=== PATIENT | female | born 1990 | race Caucasian/White ===

== ENCOUNTER 2018-07-18 05:21 | Outpatient (CLI) | payer SELFPAY | END 2018-07-18 05:22 | disposition critical access hospital (66) | LOC: EMS 05:21 | PROVIDERS: ATTEND Surgery | DX: R11.2 Nausea with vomiting, unspecified (principal); M25.511 Pain in right shoulder; N64.4 Mastodynia | CPT/HCPCS: A0425; A0427 ==

== ENCOUNTER 2018-07-18 05:43 | Inpatient (IN) | payer SELFPAY ==
--- NOTE | 2018-07-18 06:10 | ED Physician Documentation ---
History of Present Illness - Stated complaint Stated Complaint: N/V/SHOULDER PAIN - Chief complaint Chief Complaint: Abd Pain - History obtained from History obtained from: Patient - Additonal information Additional information: Patient is a 28-year-old female with history of insulin-dependent type 1 diabetes, anxiety, depression, borderline personality disorder presenting with about 1 day of nausea, vomiting, right upper quadrant pain that radiates to her right shoulder. Patient reports that she is compliant with all medications. Patient denies associated fever, urinary changes, stool changes, abnormal vaginal bleeding, discharge, or pain. Last menstrual period approximately 3 weeks ago. Patient denies any particular improving or worsening factors to her symptoms. Patient denies drug and alcohol use. Patient denies history of STIs, PID, gallbladder issues. Review of Systems Constitutional: denies: Fever GI: reports: Abdominal Pain, Nausea, Vomiting PD PAST MEDICAL HISTORY - Past Medical History Endocrine/Autoimmune: Type 1 diabetes Psych: Depression, Anxiety, Other - Past Surgical History Past Surgical History: No - Allergies Allergies/Adverse Reactions: Allergies Allergy/AdvReac Type Severity Reaction Status Date / Time Iodine and Iodide Containing Allergy Anaphylaxis Verified 07/18/18 05:50 Produc PD ED PE NORMAL - General General: Alert and oriented X 3, Well developed/nourished. No: No acute distress (Ill and uncomfortable appearing) - HEENT HEENT: Atraumatic, Pharynx benign, Dentition benign. No: Moist mucous membranes (Dry mucous membranes) - Cardiac Cardiac: No murmur, Other. No: RRR (Slightly tachycardic) - Abdomen Abdomen: Normal bowel sounds, Soft, Non tender (No specific rebound, guarding, Lomax's sign, McBurney's point tenderness), Non distended - Derm Derm: Normal color, Warm and dry, No rash - Extremities Extremities: No deformity, No tenderness to palpate, No edema - Neuro Neuro: Alert and oriented X 3, No motor deficit, No sensory deficit - Psych Psych: Normal mood, Normal affect Results - Vitals Vitals: Vital Signs - 24 hr 07/18/18 07/18/18 05:46 07:04 Temperature 36.6 C Heart Rate 116 H 116 H Respiratory 18 17 Rate Blood Pressure 114/69 96/55 L O2 Saturation 99 100 Oxygen O2 Source Room air - Labs Labs: Laboratory Tests 07/18/18 07/18/18 07/18/18 05:50 06:25 06:25 WBC 19.1 H RBC 4.81 Hgb 14.6 Hct 46.3 MCV 96.4 MCH 30.4 MCHC 31.5 L RDW 12.9 Plt Count 346 MPV 8.9 Neut # (Auto) Not Reportable Lymph # (Auto) Not Reportable Stephens # (Auto) Not Reportable Eos # (Auto) Not Reportable Baso # (Auto) Not Reportable Absolute Nucleated RBC Not Reportable Total Counted 100 Band Neuts % (Manual) 4 Abnorm Lymph % (Manual) 0 Nucleated RBC % Not Reportable Neutrophils # (Manual) 14.3 H Lymphocytes # (Manual) 3.6 H Monocytes # (Manual) 1.1 H Eosinophils # (Manual) 0.0 Basophils # (Manual) 0.0 Differential Comment MANUAL DIFFERENTIAL Platelet Estimate NORMAL (130-450,000) RBC Morph Micro Appear NORMAL APPEARANCE Sodium 132 L Potassium 4.0 Chloride 107 Carbon Dioxide 6 L* Anion Gap 19.0 H BUN 10 Creatinine 0.7 Estimated GFR (MDRD) 100 Glucose 358 H POC Whole Bld Glucose Calcium 7.3 L Total Bilirubin 1.4 H AST 18 ALT 16 Alkaline Phosphatase 97 Total Protein 6.9 Albumin 3.9 Globulin 3.0 Albumin/Globulin Ratio 1.3 Lipase 19 L Serum HCG, Qual Urine Color YELLOW Urine Clarity CLEAR Urine pH 5.5 Ur Specific Davis >=1.030 H Urine Protein 100 H Urine Glucose (UA) 500 H Urine Ketones >=80 H Urine Occult Blood MODERATE H Urine Nitrite NEGATIVE Urine Bilirubin NEGATIVE Urine Urobilinogen 0.2 (NORMAL) Ur Leukocyte Esterase NEGATIVE Urine RBC 6-10 H Urine WBC 0-3 Ur Squamous Epith Cells RARE Squamous Urine Bacteria Rare Urine Mucus Few Strands Ur Microscopic Review INDICATED Urine Culture Comments NOT INDICATED Serum Ketones 07/18/18 07/18/18 07/18/18 06:25 06:25 06:51 WBC RBC Hgb Hct MCV MCH MCHC RDW Plt Count MPV Neut # (Auto) Lymph # (Auto) Stephens # (Auto) Eos # (Auto) Baso # (Auto) Absolute Nucleated RBC Total Counted Band Neuts % (Manual) Abnorm Lymph % (Manual) Nucleated RBC % Neutrophils # (Manual) Lymphocytes # (Manual) Monocytes # (Manual) Eosinophils # (Manual) Basophils # (Manual) Differential Comment Platelet Estimate RBC Morph Micro Appear Sodium Potassium Chloride Carbon Dioxide Anion Gap BUN Creatinine Estimated GFR (MDRD) Glucose POC Whole Bld Glucose 350 H Calcium Total Bilirubin AST ALT Alkaline Phosphatase Total Protein Albumin Globulin Albumin/Globulin Ratio Lipase Serum HCG, Qual NEGATIVE Urine Color Urine Clarity Urine pH Ur Specific Davis Urine Protein Urine Glucose (UA) Urine Ketones Urine Occult Blood Urine Nitrite Urine Bilirubin Urine Urobilinogen Ur Leukocyte Esterase Urine RBC Urine WBC Ur Squamous Epith Cells Urine Bacteria Urine Mucus Ur Microscopic Review Urine Culture Comments Serum Ketones MODERATE H PD MEDICAL DECISION MAKING - ED course Complexity details: reviewed results, re-evaluated patient, considered differential, d/w patient ED course: Patient recently moved to the area and does not have previous records at this hospital. Patient has history of type 1 diabetes and with her symptoms, do have concern for possible DKA. Given her right upper quadrant pain that radiates to her right shoulder, also have concern for gallbladder disease such as biliary colic and acute cholycystitis, as well as Pb-Darryl Bharath syndrome. However, patient denies previous STIs, PID, gallbladder issues. Patient also denies vaginal complaints today that would raise high suspicion for acute PID or STI, making Pb-Darryl Bharath syndrome less likely. Patient started on IV fluids, as well as nausea and pain medication. Blood work and urinalysis ordered, as well as right upper quadrant ultrasound to further evaluate for possible gallbladder problems.Blood glucose levels measuring over 315 felt appropriate to give 10 units of regular insulin, especially given concern for DKA. Lab work returned with significant leukocytosis, as well as elevated anion gap and presence of ketones in both blood and urine. Patient's CO2 levels also decreased. At this time, feel most appropriate to admit to hospitalist for further work-up and treatment. Discussed results and recommendations including admission with patient who is comfortable with this plan. Gallbladder ultrasound still pending. Hospitalist agrees to admission. Departure - Departure Disposition: 66 [facility] DC/Xfer Clinical Impression: DKA (diabetic ketoacidoses) Qualifiers: Diabetes mellitus type: type 1 Diabetes mellitus complication detail: without coma Qualified Code(s): E10.10 - Type 1 diabetes mellitus with ketoacidosis without coma Condition: Fair
[2018-07-18] MEDS ORDERED: ONDANSETRON 4 MG/2 ML VIAL IVP STA (06:16)
[2018-07-18] MEDS ORDERED: SODIUM CHLORIDE 0.9% 1,000 ML IV ONE ×2 (06:16→07:14)
[2018-07-18 06:33] LABS: BASOPHILS % (AUTO) 0.6 %; EOSINOPHILS % (AUTO) 0.1 %; MEAN CORPUSCULAR HGB CONC 31.5 g/dL (32.0-36.0)
[2018-07-18 06:39] LABS: HGB - HEMOGLOBIN 14.6 g/dL (12.0-16.0); LYMPHOCYTES % (AUTO) 11.5 %; MEAN CORPUSCULAR HEMOGLOBIN 30.4 pg (27.0-31.0); MEAN CORPUSCULAR VOLUME 96.4 fL (81.0-99.0); MEAN PLATELET VOLUME 8.9 fL (7.9-10.8); MONOCYTES % (AUTO) 6.4 %; NEUTROPHILS % (AUTO) 81.4 %; PLT - PLATELET COUNT 346 10^3/uL (130-450); RED BLOOD COUNT 4.81 10^6/uL (4.20-5.40); RED CELL DISTRIBUTION WIDTH 12.9 % (12.0-15.0); WHITE BLOOD COUNT 19.1 x10^3/uL (4.8-10.8)
[2018-07-18 06:41] LABS: ABNORMAL LYMPHS % (MANUAL) 0 %
[2018-07-18] MEDS ORDERED: fentaNYL 100 MCG/2 ML VIAL IVP STA (06:41)
[2018-07-18 06:56] LABS: ALBUMIN 3.9 g/dL (3.2-5.5); ALBUMIN/GLOBULIN RATIO 1.3 (1.0-2.2); BILIRUBIN,TOTAL 1.4 mg/dL (0.2-1.0); CALCIUM 7.3 mg/dL (8.5-10.3); CREATININE 0.7 mg/dL (0.4-1.0); TOTAL PROTEIN 6.9 g/dL (6.7-8.2)
[2018-07-18] MEDS ORDERED: INSULIN REGULAR HUMAN 100 UNIT/1 ML 10 ML MDV IVP STA (06:57)
[2018-07-18 07:00] LABS: HCG,QUALITATIVE BLOOD NEGATIVE
[2018-07-18 07:00] LABS: BILIRUBIN,URINE NEGATIVE (NEGATIVE); GLUCOSE, URINE (UA) 500 mg/dL (NEGATIVE); KETONES,URINE (UA) >=80 mg/dL (NEGATIVE); LEUKOCYTE ESTERASE, URINE NEGATIVE (NEGATIVE); NITRITE,URINE NEGATIVE (NEGATIVE); OCCULT BLOOD,URINE MODERATE (NEGATIVE); PH,URINE 5.5 PH (5.0-7.5); PROTEIN,URINE 100 mg/dL (NEGATIVE); UROBILINOGEN,URINE 0.2 (NORMAL) E.U./dL (NORMAL)
[2018-07-18 07:05] LABS: BAND NEUTROPHILS % (MANUAL) 4 %; DIFFERENTIAL COMMENT MANUAL DIFFERENTIAL; LYMPHOCYTES # (MANUAL) 3.6 10^3/uL (1.5-3.5); LYMPHOCYTES % (MANUAL) 19 %; MONOCYTES # (MANUAL) 1.1 10^3/uL (0.0-1.0); NEUTROPHILS # (MANUAL) 14.3 10^3/uL (1.5-6.6); NEUTROPHILS % (MANUAL) 71 %; PLATELET ESTIMATE, MANUAL NORMAL (130-450,000) (NORMAL); RBC MORPHOLOGY (MULTIPLE) NORMAL APPEARANCE (NORMAL)
[2018-07-18 07:07] LABS: CLARITY,URINE CLEAR (CLEAR)
[2018-07-18 07:17] LABS: BACTERIA,URINE Rare /HPF (None Seen); MUCUS,URINE Few Strands; SQUAMOUS EPITHELIAL CELL,UR RARE Squamous (<= Few)
[2018-07-18] MEDS ORDERED: HYDROmorphone 0.5 MG/0.5 ML SYRINGE IVP PRN (08:10)
[2018-07-18] MEDS ORDERED: PROCHLORPERAZINE 10 MG/2 ML VIAL IVP PRN (08:10)
[2018-07-18] MEDS ORDERED: ONDANSETRON 4 MG/2 ML VIAL IVP PRN (08:10)
[2018-07-18] MEDS ORDERED: SODIUM CHLORIDE FLUSH 0.9% 10 ML SYRINGE IVP PRN (08:10)
[2018-07-18 08:48] LABS: VBG BASE EXCESS -28.8 mmol/L (-2 - +2); VBG PCO2 26.8 mmHg (41-51); VBG PH 6.849 (7.31-7.41); VBG PO2 36.3 mmHg (25-47); VBG TOTAL CO2 5.4 mmol/L (24-29)
[2018-07-18 08:55] LABS: HB2 TOTAL 17.7 g/dL; HEMOGLOBIN A1C 1.86 g/dL; HEMOGLOBIN A1C % 11.8 % (4.6-6.2)
[2018-07-18] MEDS ORDERED: ACETAMINOPHEN 325 MG TABLET PO STA (08:55)
[2018-07-18] MEDS ORDERED: INSULIN REGULAR HUMAN 100 UNIT in SODIUM CHLORIDE 0.9% 100ML 99 ML IV SCH (09:00)
[2018-07-18] MEDS ORDERED: DEXTROSE 5%-0.9% NACL 1,000 ML IV SCH (09:00)
[2018-07-18 09:01] LABS: BUN - BLOOD UREA NITROGEN 9 mg/dL (6-20); CALCIUM 7.5 mg/dL (8.5-10.3); CHLORIDE 109 mmol/L (101-111); CREATININE 0.8 mg/dL (0.4-1.0); GFR - MDRD 85 (>89); GLUCOSE 305 mg/dL (70-100); MAGNESIUM 2.1 mg/dL (1.7-2.8); SODIUM 132 mmol/L (135-145)
[2018-07-18 09:02] LABS: CARBON DIOXIDE - CO2 < 6 mmol/L (21-32)
--- NOTE | 2018-07-18 09:12 | Ultrasound Report ---
Reason: concern for gallbladder, Pb Sinha Procedure Date: 07/18/2018 Accession Number: [id number] / [id number] Procedure: US - Abdomen Limited CPT Code: FULL RESULT: EXAM: ABDOMEN ULTRASOUND LIMITED, RUQ EXAM DATE: 07/18/2018 08:33 AM. CLINICAL HISTORY: Concern for gallbladder, Pb Sinha. COMPARISON: None. TECHNIQUE: Real-time scanning was performed with static images obtained. FINDINGS: Liver: Overall decreased echotexture of the liver parenchyma with accentuated brightness of the portal vein calvin. 14.3 cm. Main portal vein flow: Hepatopetal. Gallbladder: There is a 4 mm gallbladder wall polyp. No stones or sludge. No gallbladder wall thickening. No sonographic Lomax's sign. Biliary System: CBD measures 3 mm. No intrahepatic or extrahepatic ductal dilatation. Other: The right kidney measures 11.3 cm in length. No hydronephrosis. IMPRESSION: 1. No cholelithiasis or cholecystitis. 2. Overall decreased echotexture of the liver parenchyma with accentuated brightness of the portal vein calvin can be seen in the setting of acute hepatitis. Correlate clinically. RADIA
[2018-07-18] MEDS ORDERED: SODIUM CHLORIDE FLUSH 0.9% 10 ML SYRINGE ONE (09:38)
[2018-07-18] MEDS: SODIUM CHLORIDE FLUSH 0.9% 10 ML SYRINGE IVP SCH ×2 (10:17→21:41)
[2018-07-18] MEDS: SODIUM CHLORIDE 0.9% 1,000 ML IV SCH ×2 (10:19→22:31)
[2018-07-18 11:00] LABS: VBG BASE EXCESS -28.3 mmol/L (-2 - +2); VBG PCO2 27.5 mmHg (41-51); VBG PH 6.859 (7.31-7.41); VBG PO2 24.7 mmHg (25-47); VBG TOTAL CO2 5.6 mmol/L (24-29)
[2018-07-18 11:20] LABS: BUN - BLOOD UREA NITROGEN 8 mg/dL (6-20); CALCIUM 7.2 mg/dL (8.5-10.3); CHLORIDE 111 mmol/L (101-111); CREATININE 0.7 mg/dL (0.4-1.0); GFR - MDRD 100 (>89); GLUCOSE 240 mg/dL (70-100); MAGNESIUM 1.9 mg/dL (1.7-2.8); SODIUM 132 mmol/L (135-145)
[2018-07-18 11:21] LABS: CARBON DIOXIDE - CO2 < 6 mmol/L (21-32)
[2018-07-18] MEDS ORDERED: SODIUM BICARBONATE 150 MEQ in DEXTROSE 5% 1,000 ML IV SCH (11:30)
[2018-07-18] MEDS: VENLAFAXINE ER 75 MG CAPSULE PO SCH (11:53)
[2018-07-18] MEDS ORDERED: fentaNYL 100 MCG/2 ML VIAL IVP PRN (11:53)
[2018-07-18] MEDS ORDERED: ACETAMINOPHEN 1,000 MG/100 ML 100 ML IV PRN (12:00)
[2018-07-18 12:13] LABS: BUN - BLOOD UREA NITROGEN 7 mg/dL (6-20); CALCIUM 7.5 mg/dL (8.5-10.3); CHLORIDE 111 mmol/L (101-111); CREATININE 0.7 mg/dL (0.4-1.0); GFR - MDRD 100 (>89); GLUCOSE 215 mg/dL (70-100); MAGNESIUM 1.9 mg/dL (1.7-2.8); SODIUM 134 mmol/L (135-145)
[2018-07-18 12:14] LABS: CARBON DIOXIDE - CO2 < 6 mmol/L (21-32)
[2018-07-18] MEDS ORDERED: IOVERSOL 320 100 ML VIAL IVP ONE (12:17)
[2018-07-18] MEDS ORDERED: POTASSIUM CHLOR 10 MEQ/100 ML 10 MEQ/100 ML BAG IV ONE (12:30)
[2018-07-18] MEDS ORDERED: DOXYCYCLINE INJ 100 MG in SODIUM CHLORIDE 0.9% MINIBAG 100 ML IV SCH (12:30)
[2018-07-18 12:59] LABS: VBG PCO2 22.6 mmHg (41-51); VBG PH 6.942 (7.31-7.41); VBG PO2 41.7 mmHg (25-47)
[2018-07-18 13:00] LABS: VBG BASE EXCESS -26.4 mmol/L (-2 - +2); VBG TOTAL CO2 5.5 mmol/L (24-29)
[2018-07-18] MEDS ORDERED: cefOXitin 2 GM in SODIUM CHLORIDE 0.9% MINIBAG 100 ML IV SCH (13:00)
--- NOTE | 2018-07-18 13:23 | XRAY Report ---
Reason: Pleuritic R chest pain, rales R base Procedure Date: 07/18/2018 Accession Number: [id number] / [id number] Procedure: XR - Chest 1 View X-Ray CPT Code: 52522 FULL RESULT: EXAM: CHEST RADIOGRAPHY EXAM DATE: 07/18/2018 12:19 PM. CLINICAL HISTORY: Pleuritic R chest pain, rales R base. COMPARISON: None. TECHNIQUE: 1 view. FINDINGS: Lungs/Pleura: No focal opacity. No effusions. Mediastinum: Within exam limitations, the cardiomediastinal contour is normal. Other: None. IMPRESSION: No acute radiographic cardiopulmonary process RADIA
[2018-07-18] MEDS ORDERED: GENTAMICIN PER PHARMACY (DO NOT LOAD) IV ONE (13:25)
--- NOTE | 2018-07-18 14:46 | HISTORY & PHYSICAL EXAMINATION ---
DATE OF SERVICE: 07/18/2018 Physician: Ludmila Amaro MD HISTORY OF PRESENT ILLNESS: This is a 28-year-old white female who is visiting here from [place]. The patient has been here approximately a week, helping her sister's family move and then plans to travel with them by car and eventually return to [place]. The patient has a history of type 1 diabetes, which was diagnosed three years ago. She describes having one episode of "ketoacidosis" previously. She also has a history of anxiety and depression and borderline disorder and is on psychiatric medications, which are keeping her stable. The patient presents with awakening approximately a day and a half ago, at 3:00 in the morning with severe nausea and vomiting. She tried to take liquids, including 7-Up, which only helped minimally. She used a heating pad, but continued to have nausea, vomiting, and right upper quadrant pain, and after 24 hours with these symptoms, presented to the Emergency Room. In the ER, she described right upper quadrant pain with radiation to the right shoulder. She has never had this before. There was no fever. She denies any diarrhea. She denies any cardiopulmonary symptoms. The ER evaluation revealed that she has an elevated white count of 19 with a left shift, severe acidosis with serum pH 6.9 and positive ketones, elevated glucose over 300, and is in diabetic ketoacidosis. She is being admitted for DKA management. PAST MEDICAL HISTORY 1. Type 1 diabetes, diagnosed three years ago, one episode of DKA in the past. 2. Depression and anxiety. 3. Borderline personality disorder. ALLERGIES: IODINE AND IODINE-CONTAINING PRODUCTS. MEDICATIONS 1. Novolin insulin 1-10 U sq before meals and at bedtime. 2. FlexPen insulin 70/30, 25 units b.i.d. 3. Effexor XR 150 mg daily. 4. Prazosin 1 mg every night. 5. Abilify 15 mg every night. 6. Temazepam 15 mg every night. 7. Benztropine 0.5 mg in the a.m. and 1 mg in the p.m. FAMILY HISTORY: Mother of alcoholism. Father's diagnosis is unknown. She has one identical twin sister who does not have diabetes, but does have insulin resistance. A son is healthy. SOCIAL HISTORY: She is , has one 9-year-old child. The patient lives in [place]. 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 She is living with a significant other and her 9-year-old son. She is a smoker of half pack a day of cigarettes. She does not use any marijuana, no illicit drug use, no history of IV drug use. She very rarely drinks any alcohol. REVIEW OF SYSTEMS: The patient reports that two days ago, she and her twin sister, along with nephew ate at a fast-food restaurant; they did have different foods. She denies any i.v drug use ever. She has never had Hepatitis. She has never had symptoms of right upper quadrant pain. There are no pelvic symptoms. A comprehensive review of systems was performed, the pertinent positives are listed, the rest are negative. PHYSICAL EXAMINATION GENERAL: Young white female. She is in moderate distress from pain. She is sitting upright in bed, which is a more comfortable position than lying supine. She has a heating pad over the right upper quadrant of the abdomen. VITAL SIGNS: Blood pressure 129/78, heart rate 130 in sinus tachycardia. She is afebrile. Room air saturation 100%. HEENT: Shows dry oral mucosa. NECK: Without JVD or carotid bruits. CHEST: Right basilar crackles or atelectasis, otherwise clear. No wheezing. HEART: Heart sounds are normal, but tachycardic. ABDOMEN: Soft, decreased bowel sounds, nontender to light palpation. No guarding or rebound. No organomegaly. EXTREMITIES: No clubbing, cyanosis or edema. NEUROLOGIC: Grossly intact. LABORATORY DATA: Sodium 132, potassium 4.0, bicarbonate 6, anion gap 19, BUN and creatinine normal. Glucose 358. A1c is 11.8, calcium 7.3, bilirubin 1.4. Normal lipase. Negative serum hCG. White blood count 19 with a left shift. Hemoglobin 14.6, platelet count 346. Venous blood gas pH 6.85. Urinalysis had moderate occult blood and high ketones. Nasal screen was negative for MRSA. Her serum ketones are moderate. X-RAY: Chest x-ray shows no active pulmonary disease. EKG: Sinus tachycardia, diffusely flat T waves and prolonged QTc interval of 496 msec. There is no old EKG available for comparison. ULTRASOUND: A right upper quadrant ultrasound was done that revealed "no cholelithiasis or cholecystitis, decreased echotexture of the liver parenchyma with accentuated brightness of the portal vein calvin, which can be seen in acute hepatitis". DIAGNOSES/IMPRESSION 1. Diabetic ketoacidosis. 2. History of Type 1 diabetes. 3. Right upper quadrant pain. 4. Abnormal portal vein and liver findings by ultrasound imaging. 5. Pleuritic pain with the above findings suggests possible Ywtg-Isoa-Qlbpdr syndrome (hepatic involvement from pelvic inflammatory disease). 6. Possible PID, therefore. 7. Abnormal EKG. PLAN 1. Admit the patient to the ICU on telemetry. 2. Start a DKA protocol including IV insulin drip, saline hydration, bicarbonate infusion in her case, and eventual transition to D5 with saline and potassium hydration. 3. Use antiemetics and start bowel rest, except ice chips and sips of water and diet 7-Up will be okay. 4. Obtain further imaging of the abdomen and pelvis, a CT or MRI will be requested. 5. Begin treatment empirically for PID plus Rulx-Zcpg-Rzemoq syndrome. Our hospital does not currently carry Cefoxitin, per Pharmacy, therefore the combination, from [employer], of Cefoxitin plus Doxycycline cannot be used, but in its place, we will use IV clindamycin and IV gentamicin with serum Gentamicin troughs to be followed. The ER was also considering this diagnosis and a Gonococcus/Chlamydia test was already sent off. A INSTRUCTIONAL MATERIAL DIRECTOR consult will be requested to follow along and advise. 6. Continue her antidepressant and antipsychotic medications with sips of water. 7. Advance the diet as tolerated. 8. Echo to evaluate resting cardiac function. CODE STATUS: FULL CODE. DEEP VENOUS THROMBOSIS PROPHYLAXIS: ZAYRA stockings and SCDs. ATTESTATION: The patient is expected to be transferred or discharged to another facility within 96 hours: Yes. TD: 07/18/2018 14:06 WESLY
[2018-07-18] MEDS: CLINDAMYCIN 900 MG/50 ML 50 ML IV SCH ×2 (15:32→22:31)
[2018-07-18] MEDS ORDERED: SODIUM CHLORIDE 0.9% IV ONE (16:00)
[2018-07-18] MEDS ORDERED: GENTAMICIN IV ONE (16:00)
--- NOTE | 2018-07-18 17:08 | HISTORY & PHYSICAL EXAMINATION ---
DATE OF SERVICE: 07/18/2018 Physician: Ludmila Amaro MD ADDENDUM TO DIAGNOSES/IMPRESSION 8. Anxiety and depression. 9. Bipolar disorder. TD: 07/18/2018 16:31
[2018-07-18] MEDS ORDERED: SODIUM BICARBONATE 8.4% 50 MEQ/50 ML VIAL ONE (17:19)
--- NOTE | 2018-07-18 17:30 | ANESTHESIA PROCEDURE NOTE ---
Anesth Central Line Template - Central Line Central Line Preparation: Consent Obtained, Time out completed, Ultrasound used, Sterile prep and drape Central line location: Right IJ Central line type: Triple lumen Central line catheter tip site resides: Superior vena cava (SVC) Central line aftercare: Chlorhexidine disc placed, Secured, Placement confirmed, No pneumothorax, No complications, Bundle checklist complete, Pt tolerated well
--- NOTE | 2018-07-18 18:04 | XRAY Report ---
Reason: new CVL@R IJ Procedure Date: 07/18/2018 Accession Number: [id number] / [id number] Procedure: XR - Chest for Line Placement CPT Code: FULL RESULT: EXAM: CHEST RADIOGRAPHY EXAM DATE: 07/18/2018 05:34 PM. CLINICAL HISTORY: New CVC RIGHT IJ. COMPARISON: CHEST 1 VIEW 07/18/2018 12:06 PM. TECHNIQUE: 1 view. FINDINGS: Cardiac leads overlie the chest. There is a right internal jugular central venous catheter terminating in the right atrium, approximately 2.5 cm below the expected location of the superior cavoatrial junction. Heart size is normal. No consolidation, pleural effusion, or pneumothorax. IMPRESSION: Right internal jugular central venous catheter terminating in the right atrium approximately 2.5 cm below the expected location of the superior cavoatrial junction. No acute cardiopulmonary findings. RADIA
[2018-07-18] MEDS: KETOROLAC 30 MG/ML VIAL IVP PRN (18:16)
[2018-07-18 18:20] LABS: VBG PCO2 25.5 mmHg (41-51); VBG PH 7.2 (7.31-7.41)
[2018-07-18 18:21] LABS: VBG BASE EXCESS -16.6 mmol/L (-2 - +2); VBG TOTAL CO2 10.5 mmol/L (24-29)
[2018-07-18] MEDS ORDERED: POTASSIUM CHLOR 20 MEQ/100 ML 20 MEQ/100 ML BAG IV SCH (18:54)
--- NOTE | 2018-07-18 20:11 | CONSULTATION NOTE ---
DATE OF SERVICE: 07/18/2018 Physician: Bernardino Corcoran MD IDENTIFICATION: Patient is a 28-year-old G1, P1 female whose last menstrual period was roughly 06/27/2018. She is currently using condoms for contraception. She states she uses them continuously. CHIEF COMPLAINT: Right upper quadrant pain. HISTORY OF PRESENT ILLNESS: Patient states at roughly 3 o'clock yesterday morning, she developed sharp right upper quadrant pain. She states she also had difficulty with pain with deep inspiration. She was seen in the ED, at which time, she was evaluated. Her labs showed normal LFTs, at this point. She is currently in a monogamous relationship with only one partner, and she is utilizing condoms for contraception. She denies any history of hepatitis B in the past. She denies any history of GC or chlamydia. The diagnosis of Ertr-Rzkl-Ffxxaw was entertained. PAST MEDICAL HISTORY: Positive for a 3-year history of type 1 diabetes. She is currently in diabetic ketoacidosis, under the care of Internal Medicine for this. PAST SURGICAL HISTORY: Positive for right ACL knee repair. ALLERGIES: IODINE, WHICH IS ANAPHYLAXIS, WELL BEE STINGS. CURRENT MEDICATIONS 1. Insulin, she is currently taking NovoLog 70/30, 25 units, as well as a sliding scale of NovoLog R. 2. Effexor. 3. Prazosin. 4. Abilify. 5. Temazepam. 6. Benztropine. HABITS: Patient smokes 12 cigarettes per day. Denies use of alcohol, street or addictive drugs, or tetrahydrocannabinol. SOCIAL HISTORY: Patient is , lives with significant other as well as her child. She is here visiting from [place]. She works as a homemaker. PHYSICAL EXAMINATION GENERAL: Patient is a well-developed, well-nourished female. She is currently complaining of headache. She is in the ICU, at this time, and she is currently receiving therapy for her diabetic ketoacidosis. PELVIC/ABDOMEN: Exam shows a pelvis, which is nontender at this time. There are no scars noted either. Speculum examination reveals a whitish discharge. She had a wet mount obtained from this. She also had a GC and chlamydia obtained from the cervix. Internal examination reveals no cervical motion tenderness. Uterus is retroverted. Exact dimensions could not be totally ascertained. The adnexa show no masses and are nontender, at this point. IMPRESSION: A 28-year-old G1, P1 female with right upper quadrant pain. At this particular time, the concerns about possible Wjrv-Phyu-Geigwg have been raised. Her liver function tests are normal, at this particular time. Her CBC shows white count of 19.1, hemoglobin is 14.6, hematocrit is 46.3, platelets are 346. Neutrophils are elevated at 14.3, as well as lymphocytes and monocytes at 3.6 and 1.1. Her blood sugars have been ranging, initially at 355. They are currently getting control of these. She shows a mild hyponatremia. Her AST is 18, ALT is 16, total bilirubin is 1.4. Alkaline phosphatase is 9.7. At this particular time, we will await GC and chlamydia. She is being treated with clindamycin 90 mg every 8 hours. She is also receiving gentamicin 70 mg. At this particular point, these should cover the potential for a chlamydial as well as gonorrheal infection. PLAN: I have ordered a pelvic ultrasound looking for evidence of any kind of tubo-ovarian abscesses, an ESR, a C-reactive protein, an HIV and RPR, as well as hepatitis panel. She has a scheduled MRI for tomorrow. TD: 07/18/2018 18:17 WESLY
[2018-07-18 20:16] LABS: VBG BASE EXCESS -13.7 mmol/L (-2 - +2); VBG PH 7.242 (7.31-7.41); VBG PO2 57.2 mmHg (25-47); VBG TOTAL CO2 13.1 mmol/L (24-29)
[2018-07-18 20:22] LABS: CALCIUM 7.9 mg/dL (8.5-10.3); CREATININE 0.5 mg/dL (0.4-1.0)
[2018-07-18] MEDS ORDERED: POTASSIUM CHLOR 20 MEQ/100 ML 20 MEQ/100 ML BAG IV ONE (20:29)
[2018-07-18] MEDS ORDERED: POTASSIUM CHLORIDE 20 MEQ TABLET PO SCH (20:36)
[2018-07-18 21:33] LABS: CALCIUM 7.7 mg/dL (8.5-10.3); CREATININE 0.3 mg/dL (0.4-1.0)
[2018-07-18 21:35] LABS: BILIRUBIN,URINE NEGATIVE (NEGATIVE); GLUCOSE, URINE (UA) 500 mg/dL (NEGATIVE); KETONES,URINE (UA) 40 mg/dL (NEGATIVE); LEUKOCYTE ESTERASE, URINE NEGATIVE (NEGATIVE); NITRITE,URINE NEGATIVE (NEGATIVE); OCCULT BLOOD,URINE TRACE-INTA (NEGATIVE); PROTEIN,URINE TRACE mg/dL (NEGATIVE); UROBILINOGEN,URINE 0.2 (NORMAL) E.U./dL (NORMAL)
[2018-07-18 21:40] LABS: CLARITY,URINE CLEAR (CLEAR); HCG UR QUAL NEGATIVE
[2018-07-18] MEDS: PRAZOSIN 1 MG CAPSULE PO SCH (21:41)
[2018-07-18] MEDS: ARIPiprazole 5 MG TABLET PO SCH (21:41)
[2018-07-18] MEDS ORDERED: SODIUM CHLORIDE 0.9% IV SCH (22:00)
[2018-07-18] MEDS ORDERED: GENTAMICIN PER PHARMACY IV SCH (22:00)
[2018-07-18] MEDS ORDERED: INSULIN GLARGINE 300 UNIT/3 ML PEN SUBQ SCH (22:11)
[2018-07-18] MEDS: TEMAZEPAM 15 MG CAPSULE PO SCH (23:20)
[2018-07-19] MEDS ORDERED: SODIUM CHLORIDE 0.9% 50 ML IV ONE (00:07)
[2018-07-19] MEDS: BENZTROPINE 2 MG TABLET PO SCH ×3 (00:17→20:13)
[2018-07-19] MEDS: SODIUM CHLORIDE FLUSH 0.9% 10 ML SYRINGE IVP SCH ×3 (00:17→17:06)
[2018-07-19] MEDS: GENTAMICIN IV SCH ×4 (00:17→23:19)
[2018-07-19] MEDS: SODIUM CHLORIDE 0.9% IV SCH ×6 (00:17→23:19)
[2018-07-19 00:27] LABS: VBG PCO2 24.5 mmHg (41-51); VBG PH 7.217 (7.31-7.41); VBG PO2 139.9 mmHg (25-47)
[2018-07-19 00:28] LABS: VBG BASE EXCESS -16.2 mmol/L (-2 - +2); VBG TOTAL CO2 10.5 mmol/L (24-29)
[2018-07-19 00:29] LABS: KETONES, SERUM (ACETEST) MODERATE (NEGATIVE)
[2018-07-19] MEDS: INSULIN REGULAR HUMAN 100 UNIT/1 ML 10 ML MDV SUBQ SCH ×3 (00:30→12:04)
[2018-07-19 00:35] LABS: BUN - BLOOD UREA NITROGEN < 5 mg/dL (6-20); CALCIUM 7.7 mg/dL (8.5-10.3); CARBON DIOXIDE - CO2 11 mmol/L (21-32); CHLORIDE 108 mmol/L (101-111); CREATININE 0.4 mg/dL (0.4-1.0); GFR - MDRD 190 (>89); GLUCOSE 273 mg/dL (70-100); SODIUM 133 mmol/L (135-145)
[2018-07-19] MEDS ORDERED: CALCIUM GLUCONATE 1,000 MG in SODIUM CHLORIDE 0.9% 50 ML IV SCH (00:40)
[2018-07-19] MEDS ORDERED: POTASSIUM CHLORIDE INJ 40 MEQ in SODIUM CHLORIDE 0.9% 480 ML IV ONE (00:57)
[2018-07-19] MEDS: POTASSIUM CHLORIDE IV SCH ×2 (01:16→02:09)
[2018-07-19] MEDS ORDERED: KCL IV ONE (02:00)
[2018-07-19] MEDS ORDERED: NS W IV ONE (02:00)
[2018-07-19] MEDS ORDERED: POTASSIUM CHLOR IV ONE (02:02)
[2018-07-19 03:45] LABS: MAGNESIUM 1.7 mg/dL (1.7-2.8)
[2018-07-19 03:46] LABS: PHOSPHORUS < 1.0 mg/dL (2.5-4.6)
[2018-07-19 04:04] LABS: BUN - BLOOD UREA NITROGEN < 5 mg/dL (6-20); CALCIUM 8.1 mg/dL (8.5-10.3); CARBON DIOXIDE - CO2 14 mmol/L (21-32); CHLORIDE 112 mmol/L (101-111); CREATININE 0.5 mg/dL (0.4-1.0); GFR - MDRD 147 (>89); GLUCOSE 165 mg/dL (70-100); SODIUM 135 mmol/L (135-145)
[2018-07-19] MEDS ORDERED: MAGNESIUM SULFATE 2 GRAM 2 GM/50 ML BAG IV ONE (04:19)
[2018-07-19] MEDS ORDERED: SODIUM CHLORIDE 0.9% 250 ML IV ONE (05:21)
[2018-07-19] MEDS: CLINDAMYCIN 900 MG/50 ML 50 ML IV SCH ×3 (05:34→22:09)
[2018-07-19] MEDS: POTASSIUM PHOSPHATE 15 MMOL in SODIUM CHLORIDE 0.9% 250 ML IV SCH ×2 (05:34→09:45)
[2018-07-19 05:48] LABS: BASOPHILS % (AUTO) 0.3 %; EOSINOPHILS % (AUTO) 0.4 %; HGB - HEMOGLOBIN 12.6 g/dL (12.0-16.0); LYMPHOCYTES # (AUTO) 1.3 10^3/uL (1.5-3.5); LYMPHOCYTES % (AUTO) 19.6 %; MEAN CORPUSCULAR HEMOGLOBIN 30.9 pg (27.0-31.0); MEAN CORPUSCULAR HGB CONC 33.9 g/dL (32.0-36.0); MEAN CORPUSCULAR VOLUME 91.2 fL (81.0-99.0); MONOCYTES # (AUTO) 0.5 10^3/uL (0.0-1.0); MONOCYTES % (AUTO) 8.1 %; NEUTROPHILS # (AUTO) 4.7 10^3/uL (1.5-6.6); NEUTROPHILS % (AUTO) 71.6 %; PLT - PLATELET COUNT 220 10^3/uL (130-450); RED BLOOD COUNT 4.06 10^6/uL (4.20-5.40); RED CELL DISTRIBUTION WIDTH 12.6 % (12.0-15.0); WHITE BLOOD COUNT 6.5 x10^3/uL (4.8-10.8)
[2018-07-19 05:49] LABS: VBG BASE EXCESS -13.5 mmol/L (-2 - +2); VBG PCO2 30.3 mmHg (41-51); VBG PH 7.236 (7.31-7.41); VBG PO2 88.8 mmHg (25-47); VBG TOTAL CO2 13.5 mmol/L (24-29)
[2018-07-19 05:50] LABS: VBG PH 7.236 (7.31-7.41)
[2018-07-19 05:54] LABS: KETONES, SERUM (ACETEST) SMALL (NEGATIVE)
[2018-07-19 05:58] LABS: BUN - BLOOD UREA NITROGEN < 5 mg/dL (6-20); CARBON DIOXIDE - CO2 13 mmol/L (21-32); CHLORIDE 112 mmol/L (101-111); CREATININE 0.4 mg/dL (0.4-1.0); GFR - MDRD 190 (>89); GLUCOSE 158 mg/dL (70-100); SODIUM 137 mmol/L (135-145)
[2018-07-19] MEDS: SODIUM CHLORIDE 0.9% 1,000 ML IV SCH ×3 (06:30→18:13)
[2018-07-19] MEDS: KETOROLAC 30 MG/ML VIAL IVP PRN (06:30)
[2018-07-19] MEDS: VENLAFAXINE ER 75 MG CAPSULE PO SCH (08:16)
[2018-07-19 09:08] LABS: BUN - BLOOD UREA NITROGEN < 5 mg/dL (6-20); CALCIUM 7.3 mg/dL (8.5-10.3); CARBON DIOXIDE - CO2 13 mmol/L (21-32); CHLORIDE 112 mmol/L (101-111); CREATININE 0.4 mg/dL (0.4-1.0); GFR - MDRD 190 (>89); GLUCOSE 179 mg/dL (70-100); SODIUM 137 mmol/L (135-145)
[2018-07-19] MEDS: POTASSIUM CHLOR 20 MEQ/100 ML 20 MEQ/100 ML BAG IV SCH ×2 (09:51→10:54)
--- NOTE | 2018-07-19 10:35 | PROVIDER PROGRESS NOTE ---
Subjective - Prog Note Date Prog Note Date: 07/19/18 Prog Note Time: 10:33 - Subjective Pt reports feeling: Improved (Pt is markedly improved. PEREZ is 2/10. abdominal pain resolved. demonstrates no phrenic pain.) Objective - Vital Signs/Intake & Output Vital Signs: Vital Signs x48h Temp Pulse Resp BP Pulse Ox 07/19/18 07:00 105 H 24 87/56 L 100 07/19/18 06:00 102 H 14 97/57 L 99 07/19/18 05:00 92 16 87/61 L 99 07/19/18 04:00 36.7 C 85 15 98/66 99 07/19/18 03:25 104 H 20 101/66 99 07/19/18 03:00 102 H 20 82/53 L 99 Intake & Output: Intake & Output 07/16/18 07/17/18 07/18/18 07/19/18 23:59 23:59 23:59 23:59 Intake Total 5818.951 2864.750 Output Total 1800 800 Balance 4018.951 2064.750 - Objective General Appearance: positive: No acute distress, Alert Abdomen: positive: Non-tender, No organomegaly, Nml bowel sounds, No distention. negative: Guarding, Rebound, Mass - Lab Results Fish Bones: 07/19/18 05:25 07/19/18 08:49 Other Labs: Lab Results x24hrs 07/19/18 07/19/18 07/19/18 Range/Units 08:49 05:25 05:25 WBC (4.8-10.8) x10^3/uL RBC (4.20-5.40) 10^6/uL Hgb (12.0-16.0) g/dL Hct (37.0-47.0) % MCV (81.0-99.0) fL MCH (27.0-31.0) pg MCHC (32.0-36.0) g/dL RDW (12.0-15.0) % Plt Count (130-450) 10^3/uL MPV (7.9-10.8) fL Neut # (Auto) (1.5-6.6) 10^3/uL Lymph # (Auto) (1.5-3.5) 10^3/uL [place] # (Auto) (0.0-1.0) 10^3/uL Eos # (Auto) (0.0-0.7) 10^3/uL Baso # (Auto) (0.0-0.1) 10^3/uL Absolute Nucleated RBC x10^3/uL Nucleated RBC % /100WBC ESR (0-20) mm/Hr VBG pH 7.236 L 7.236 L (7.31-7.41) VBG pCO2 30.3 L (41-51) mmHg VBG pO2 88.8 H (25-47) mmHg VBG HCO3 12.6 L (23-28) mmol/L VBG Total CO2 13.5 L (24-29) mmol/L VBG O2 Saturation 97.1 H (60-80) % VBG Base Excess -13.5 L (-2 - +2) mmol/L Ionized Calcium 1.21 (1.15-1.33) mmol/L Sodium 137 (135-145) mmol/L Potassium 3.3 L (3.5-5.0) mmol/L Chloride 112 H (101-111) mmol/L Carbon Dioxide 13 L (21-32) mmol/L Anion Gap 12.0 (6-13) BUN < 5 L (6-20) mg/dL Creatinine 0.4 (0.4-1.0) mg/dL Estimated GFR (MDRD) 190 (>89) Glucose 179 H (70-100) mg/dL POC Whole Bld Glucose (70 - 100) mg/dL Lactic Acid (0.5-2.2) mmol/L Calcium 7.3 L (8.5-10.3) mg/dL Phosphorus (2.5-4.6) mg/dL Magnesium (1.7-2.8) mg/dL C-Reactive Protein (0-1.0) mg/dL Urine Color Urine Clarity (CLEAR) Urine pH (5.0-7.5) PH Ur Specific [place] (1.002-1.030) Urine Protein (NEGATIVE) mg/dL Urine Glucose (UA) (NEGATIVE) mg/dL Urine Ketones (NEGATIVE) mg/dL Urine Occult Blood (NEGATIVE) Urine Nitrite (NEGATIVE) Urine Bilirubin (NEGATIVE) Urine Urobilinogen (NORMAL) E.U./dL Ur Leukocyte Esterase (NEGATIVE) Ur Microscopic Review Urine Culture Comments Urine HCG, Qual Nasal Screen MRSA (PCR) (NEGATIVE) Serum Ketones (NEGATIVE) 07/19/18 07/19/18 07/19/18 Range/Units 05:25 05:25 03:18 WBC 6.5 (4.8-10.8) x10^3/uL RBC 4.06 L (4.20-5.40) 10^6/uL Hgb 12.6 (12.0-16.0) g/dL Hct 37.0 (37.0-47.0) % MCV 91.2 (81.0-99.0) fL MCH 30.9 (27.0-31.0) pg MCHC 33.9 (32.0-36.0) g/dL RDW 12.6 (12.0-15.0) % Plt Count 220 (130-450) 10^3/uL MPV 8.0 (7.9-10.8) fL Neut # (Auto) 4.7 (1.5-6.6) 10^3/uL Lymph # (Auto) 1.3 L (1.5-3.5) 10^3/uL [place] # (Auto) 0.5 (0.0-1.0) 10^3/uL Eos # (Auto) 0.0 (0.0-0.7) 10^3/uL Baso # (Auto) 0.0 (0.0-0.1) 10^3/uL Absolute Nucleated RBC 0.00 x10^3/uL Nucleated RBC % 0.0 /100WBC ESR (0-20) mm/Hr VBG pH (7.31-7.41) VBG pCO2 (41-51) mmHg VBG pO2 (25-47) mmHg VBG HCO3 (23-28) mmol/L VBG Total CO2 (24-29) mmol/L VBG O2 Saturation (60-80) % VBG Base Excess (-2 - +2) mmol/L Ionized Calcium (1.15-1.33) mmol/L Sodium 137 135 (135-145) mmol/L Potassium 3.4 L 4.0 (3.5-5.0) mmol/L Chloride 112 H 112 H (101-111) mmol/L Carbon Dioxide 13 L 14 L (21-32) mmol/L Anion Gap 12.0 9.0 (6-13) BUN < 5 L < 5 L (6-20) mg/dL Creatinine 0.4 0.5 (0.4-1.0) mg/dL Estimated GFR (MDRD) 190 147 (>89) Glucose 158 H 165 H (70-100) mg/dL POC Whole Bld Glucose (70 - 100) mg/dL Lactic Acid (0.5-2.2) mmol/L Calcium 8.0 L 8.1 L (8.5-10.3) mg/dL Phosphorus (2.5-4.6) mg/dL Magnesium (1.7-2.8) mg/dL C-Reactive Protein (0-1.0) mg/dL Urine Color Urine Clarity (CLEAR) Urine pH (5.0-7.5) PH Ur Specific [place] (1.002-1.030) Urine Protein (NEGATIVE) mg/dL Urine Glucose (UA) (NEGATIVE) mg/dL Urine Ketones (NEGATIVE) mg/dL Urine Occult Blood (NEGATIVE) Urine Nitrite (NEGATIVE) Urine Bilirubin (NEGATIVE) Urine Urobilinogen (NORMAL) E.U./dL Ur Leukocyte Esterase (NEGATIVE) Ur Microscopic Review Urine Culture Comments Urine HCG, Qual Nasal Screen MRSA (PCR) (NEGATIVE) Serum Ketones SMALL H (NEGATIVE) 07/19/18 07/19/18 07/19/18 Range/Units 03:18 00:13 00:10 WBC (4.8-10.8) x10^3/uL RBC (4.20-5.40) 10^6/uL Hgb (12.0-16.0) g/dL Hct (37.0-47.0) % MCV (81.0-99.0) fL MCH (27.0-31.0) pg MCHC (32.0-36.0) g/dL RDW (12.0-15.0) % Plt Count (130-450) 10^3/uL MPV (7.9-10.8) fL Neut # (Auto) (1.5-6.6) 10^3/uL Lymph # (Auto) (1.5-3.5) 10^3/uL [place] # (Auto) (0.0-1.0) 10^3/uL Eos # (Auto) (0.0-0.7) 10^3/uL Baso # (Auto) (0.0-0.1) 10^3/uL Absolute Nucleated RBC x10^3/uL Nucleated RBC % /100WBC ESR (0-20) mm/Hr VBG pH 7.217 L (7.31-7.41) VBG pCO2 24.5 L (41-51) mmHg VBG pO2 139.9 H (25-47) mmHg VBG HCO3 9.7 L (23-28) mmol/L VBG Total CO2 10.5 L (24-29) mmol/L VBG O2 Saturation 98.6 H (60-80) % VBG Base Excess -16.2 L (-2 - +2) mmol/L Ionized Calcium (1.15-1.33) mmol/L Sodium (135-145) mmol/L Potassium (3.5-5.0) mmol/L Chloride (101-111) mmol/L Carbon Dioxide (21-32) mmol/L Anion Gap (6-13) BUN (6-20) mg/dL Creatinine (0.4-1.0) mg/dL Estimated GFR (MDRD) (>89) Glucose (70-100) mg/dL POC Whole Bld Glucose 252 H (70 - 100) mg/dL Lactic Acid (0.5-2.2) mmol/L Calcium (8.5-10.3) mg/dL Phosphorus < 1.0 L* (2.5-4.6) mg/dL Magnesium 1.7 (1.7-2.8) mg/dL C-Reactive Protein (0-1.0) mg/dL Urine Color Urine Clarity (CLEAR) Urine pH (5.0-7.5) PH Ur Specific [place] (1.002-1.030) Urine Protein (NEGATIVE) mg/dL Urine Glucose (UA) (NEGATIVE) mg/dL Urine Ketones (NEGATIVE) mg/dL Urine Occult Blood (NEGATIVE) Urine Nitrite (NEGATIVE) Urine Bilirubin (NEGATIVE) Urine Urobilinogen (NORMAL) E.U./dL Ur Leukocyte Esterase (NEGATIVE) Ur Microscopic Review Urine Culture Comments Urine HCG, Qual Nasal Screen MRSA (PCR) (NEGATIVE) Serum Ketones (NEGATIVE) 07/19/18 07/18/18 07/18/18 Range/Units 00:10 21:12 20:45 WBC (4.8-10.8) x10^3/uL RBC (4.20-5.40) 10^6/uL Hgb (12.0-16.0) g/dL Hct (37.0-47.0) % MCV (81.0-99.0) fL MCH (27.0-31.0) pg MCHC (32.0-36.0) g/dL RDW (12.0-15.0) % Plt Count (130-450) 10^3/uL MPV (7.9-10.8) fL Neut # (Auto) (1.5-6.6) 10^3/uL Lymph # (Auto) (1.5-3.5) 10^3/uL [place] # (Auto) (0.0-1.0) 10^3/uL Eos # (Auto) (0.0-0.7) 10^3/uL Baso # (Auto) (0.0-0.1) 10^3/uL Absolute Nucleated RBC x10^3/uL Nucleated RBC % /100WBC ESR (0-20) mm/Hr VBG pH (7.31-7.41) VBG pCO2 (41-51) mmHg VBG pO2 (25-47) mmHg VBG HCO3 (23-28) mmol/L VBG Total CO2 (24-29) mmol/L VBG O2 Saturation (60-80) % VBG Base Excess (-2 - +2) mmol/L Ionized Calcium (1.15-1.33) mmol/L Sodium 133 L 130 L (135-145) mmol/L Potassium 3.1 L 3.1 L (3.5-5.0) mmol/L Chloride 108 109 (101-111) mmol/L Carbon Dioxide 11 L* 14 L (21-32) mmol/L Anion Gap 14.0 H 7.0 (6-13) BUN < 5 L 5 L (6-20) mg/dL Creatinine 0.4 0.3 L (0.4-1.0) mg/dL Estimated GFR (MDRD) 190 265 (>89) Glucose 273 H 231 H (70-100) mg/dL POC Whole Bld Glucose (70 - 100) mg/dL Lactic Acid (0.5-2.2) mmol/L Calcium 7.7 L 7.7 L (8.5-10.3) mg/dL Phosphorus (2.5-4.6) mg/dL Magnesium (1.7-2.8) mg/dL C-Reactive Protein (0-1.0) mg/dL Urine Color YELLOW Urine Clarity CLEAR (CLEAR) Urine pH 6.0 (5.0-7.5) PH Ur Specific [place] 1.025 (1.002-1.030) Urine Protein TRACE (NEGATIVE) mg/dL Urine Glucose (UA) 500 H (NEGATIVE) mg/dL Urine Ketones 40 H (NEGATIVE) mg/dL Urine Occult Blood TRACE-INTA (NEGATIVE) Urine Nitrite NEGATIVE (NEGATIVE) Urine Bilirubin NEGATIVE (NEGATIVE) Urine Urobilinogen 0.2 (NORMAL) (NORMAL) E.U./dL Ur Leukocyte Esterase NEGATIVE (NEGATIVE) Ur Microscopic Review NOT INDICATED Urine Culture Comments NOT INDICATED Urine HCG, Qual NEGATIVE Nasal Screen MRSA (PCR) (NEGATIVE) Serum Ketones MODERATE H (NEGATIVE) 07/18/18 07/18/18 07/18/18 Range/Units 20:05 20:05 20:05 WBC (4.8-10.8) x10^3/uL RBC (4.20-5.40) 10^6/uL Hgb (12.0-16.0) g/dL Hct (37.0-47.0) % MCV (81.0-99.0) fL MCH (27.0-31.0) pg MCHC (32.0-36.0) g/dL RDW (12.0-15.0) % Plt Count (130-450) 10^3/uL MPV (7.9-10.8) fL Neut # (Auto) (1.5-6.6) 10^3/uL Lymph # (Auto) (1.5-3.5) 10^3/uL [place] # (Auto) (0.0-1.0) 10^3/uL Eos # (Auto) (0.0-0.7) 10^3/uL Baso # (Auto) (0.0-0.1) 10^3/uL Absolute Nucleated RBC x10^3/uL Nucleated RBC % /100WBC ESR (0-20) mm/Hr VBG pH 7.242 L (7.31-7.41) VBG pCO2 29.0 L (41-51) mmHg VBG pO2 57.2 H (25-47) mmHg VBG HCO3 12.2 L (23-28) mmol/L VBG Total CO2 13.1 L (24-29) mmol/L VBG O2 Saturation 93.5 H (60-80) % VBG Base Excess -13.7 L (-2 - +2) mmol/L Ionized Calcium (1.15-1.33) mmol/L Sodium 133 L (135-145) mmol/L Potassium 2.4 L* (3.5-5.0) mmol/L Chloride 109 (101-111) mmol/L Carbon Dioxide 13 L (21-32) mmol/L Anion Gap 11.0 (6-13) BUN 6 (6-20) mg/dL Creatinine 0.5 (0.4-1.0) mg/dL Estimated GFR (MDRD) 147 (>89) Glucose 249 H (70-100) mg/dL POC Whole Bld Glucose (70 - 100) mg/dL Lactic Acid (0.5-2.2) mmol/L Calcium 7.9 L (8.5-10.3) mg/dL Phosphorus (2.5-4.6) mg/dL Magnesium (1.7-2.8) mg/dL C-Reactive Protein (0-1.0) mg/dL Urine Color Urine Clarity (CLEAR) Urine pH (5.0-7.5) PH Ur Specific [place] (1.002-1.030) Urine Protein (NEGATIVE) mg/dL Urine Glucose (UA) (NEGATIVE) mg/dL Urine Ketones (NEGATIVE) mg/dL Urine Occult Blood (NEGATIVE) Urine Nitrite (NEGATIVE) Urine Bilirubin (NEGATIVE) Urine Urobilinogen (NORMAL) E.U./dL Ur Leukocyte Esterase (NEGATIVE) Ur Microscopic Review Urine Culture Comments Urine HCG, Qual Nasal Screen MRSA (PCR) (NEGATIVE) Serum Ketones SMALL H (NEGATIVE) 07/18/18 07/18/18 07/18/18 Range/Units 20:02 18:49 18:25 WBC (4.8-10.8) x10^3/uL RBC (4.20-5.40) 10^6/uL Hgb (12.0-16.0) g/dL Hct (37.0-47.0) % MCV (81.0-99.0) fL MCH (27.0-31.0) pg MCHC (32.0-36.0) g/dL RDW (12.0-15.0) % Plt Count (130-450) 10^3/uL MPV (7.9-10.8) fL Neut # (Auto) (1.5-6.6) 10^3/uL Lymph # (Auto) (1.5-3.5) 10^3/uL [place] # (Auto) (0.0-1.0) 10^3/uL Eos # (Auto) (0.0-0.7) 10^3/uL Baso # (Auto) (0.0-0.1) 10^3/uL Absolute Nucleated RBC x10^3/uL Nucleated RBC % /100WBC ESR 4 (0-20) mm/Hr VBG pH (7.31-7.41) VBG pCO2 (41-51) mmHg VBG pO2 (25-47) mmHg VBG HCO3 (23-28) mmol/L VBG Total CO2 (24-29) mmol/L VBG O2 Saturation (60-80) % VBG Base Excess (-2 - +2) mmol/L Ionized Calcium (1.15-1.33) mmol/L Sodium (135-145) mmol/L Potassium (3.5-5.0) mmol/L Chloride (101-111) mmol/L Carbon Dioxide (21-32) mmol/L Anion Gap (6-13) BUN (6-20) mg/dL Creatinine (0.4-1.0) mg/dL Estimated GFR (MDRD) (>89) Glucose (70-100) mg/dL POC Whole Bld Glucose 257 H 243 H (70 - 100) mg/dL Lactic Acid (0.5-2.2) mmol/L Calcium (8.5-10.3) mg/dL Phosphorus (2.5-4.6) mg/dL Magnesium (1.7-2.8) mg/dL C-Reactive Protein (0-1.0) mg/dL Urine Color Urine Clarity (CLEAR) Urine pH (5.0-7.5) PH Ur Specific [place] (1.002-1.030) Urine Protein (NEGATIVE) mg/dL Urine Glucose (UA) (NEGATIVE) mg/dL Urine Ketones (NEGATIVE) mg/dL Urine Occult Blood (NEGATIVE) Urine Nitrite (NEGATIVE) Urine Bilirubin (NEGATIVE) Urine Urobilinogen (NORMAL) E.U./dL Ur Leukocyte Esterase (NEGATIVE) Ur Microscopic Review Urine Culture Comments Urine HCG, Qual Nasal Screen MRSA (PCR) (NEGATIVE) Serum Ketones (NEGATIVE) 07/18/18 07/18/18 07/18/18 Range/Units 18:10 18:10 18:00 WBC (4.8-10.8) x10^3/uL RBC (4.20-5.40) 10^6/uL Hgb (12.0-16.0) g/dL Hct (37.0-47.0) % MCV (81.0-99.0) fL MCH (27.0-31.0) pg MCHC (32.0-36.0) g/dL RDW (12.0-15.0) % Plt Count (130-450) 10^3/uL MPV (7.9-10.8) fL Neut # (Auto) (1.5-6.6) 10^3/uL Lymph # (Auto) (1.5-3.5) 10^3/uL [place] # (Auto) (0.0-1.0) 10^3/uL Eos # (Auto) (0.0-0.7) 10^3/uL Baso # (Auto) (0.0-0.1) 10^3/uL Absolute Nucleated RBC x10^3/uL Nucleated RBC % /100WBC ESR (0-20) mm/Hr VBG pH 7.200 L (7.31-7.41) VBG pCO2 25.5 L (41-51) mmHg VBG pO2 53.0 H (25-47) mmHg VBG HCO3 9.7 L (23-28) mmol/L VBG Total CO2 10.5 L (24-29) mmol/L VBG O2 Saturation 91.6 H (60-80) % VBG Base Excess -16.6 L (-2 - +2) mmol/L Ionized Calcium (1.15-1.33) mmol/L Sodium (135-145) mmol/L Potassium 2.9 L (3.5-5.0) mmol/L Chloride (101-111) mmol/L Carbon Dioxide (21-32) mmol/L Anion Gap (6-13) BUN (6-20) mg/dL Creatinine (0.4-1.0) mg/dL Estimated GFR (MDRD) (>89) Glucose (70-100) mg/dL POC Whole Bld Glucose (70 - 100) mg/dL Lactic Acid (0.5-2.2) mmol/L Calcium (8.5-10.3) mg/dL Phosphorus (2.5-4.6) mg/dL Magnesium (1.7-2.8) mg/dL C-Reactive Protein < 1.0 (0-1.0) mg/dL Urine Color Urine Clarity (CLEAR) Urine pH (5.0-7.5) PH Ur Specific [place] (1.002-1.030) Urine Protein (NEGATIVE) mg/dL Urine Glucose (UA) (NEGATIVE) mg/dL Urine Ketones (NEGATIVE) mg/dL Urine Occult Blood (NEGATIVE) Urine Nitrite (NEGATIVE) Urine Bilirubin (NEGATIVE) Urine Urobilinogen (NORMAL) E.U./dL Ur Leukocyte Esterase (NEGATIVE) Ur Microscopic Review Urine Culture Comments Urine HCG, Qual Nasal Screen MRSA (PCR) (NEGATIVE) Serum Ketones (NEGATIVE) 07/18/18 07/18/18 07/18/18 Range/Units 17:42 15:47 14:51 WBC (4.8-10.8) x10^3/uL RBC (4.20-5.40) 10^6/uL Hgb (12.0-16.0) g/dL Hct (37.0-47.0) % MCV (81.0-99.0) fL MCH (27.0-31.0) pg MCHC (32.0-36.0) g/dL RDW (12.0-15.0) % Plt Count (130-450) 10^3/uL MPV (7.9-10.8) fL Neut # (Auto) (1.5-6.6) 10^3/uL Lymph # (Auto) (1.5-3.5) 10^3/uL [place] # (Auto) (0.0-1.0) 10^3/uL Eos # (Auto) (0.0-0.7) 10^3/uL Baso # (Auto) (0.0-0.1) 10^3/uL Absolute Nucleated RBC x10^3/uL Nucleated RBC % /100WBC ESR (0-20) mm/Hr VBG pH (7.31-7.41) VBG pCO2 (41-51) mmHg VBG pO2 (25-47) mmHg VBG HCO3 (23-28) mmol/L VBG Total CO2 (24-29) mmol/L VBG O2 Saturation (60-80) % VBG Base Excess (-2 - +2) mmol/L Ionized Calcium (1.15-1.33) mmol/L Sodium (135-145) mmol/L Potassium (3.5-5.0) mmol/L Chloride (101-111) mmol/L Carbon Dioxide (21-32) mmol/L Anion Gap (6-13) BUN (6-20) mg/dL Creatinine (0.4-1.0) mg/dL Estimated GFR (MDRD) (>89) Glucose (70-100) mg/dL POC Whole Bld Glucose 236 H 188 H 204 H (70 - 100) mg/dL Lactic Acid (0.5-2.2) mmol/L Calcium (8.5-10.3) mg/dL Phosphorus (2.5-4.6) mg/dL Magnesium (1.7-2.8) mg/dL C-Reactive Protein (0-1.0) mg/dL Urine Color Urine Clarity (CLEAR) Urine pH (5.0-7.5) PH Ur Specific [place] (1.002-1.030) Urine Protein (NEGATIVE) mg/dL Urine Glucose (UA) (NEGATIVE) mg/dL Urine Ketones (NEGATIVE) mg/dL Urine Occult Blood (NEGATIVE) Urine Nitrite (NEGATIVE) Urine Bilirubin (NEGATIVE) Urine Urobilinogen (NORMAL) E.U./dL Ur Leukocyte Esterase (NEGATIVE) Ur Microscopic Review Urine Culture Comments Urine HCG, Qual Nasal Screen MRSA (PCR) (NEGATIVE) Serum Ketones (NEGATIVE) 07/18/18 07/18/18 07/18/18 Range/Units 13:48 12:43 12:42 WBC (4.8-10.8) x10^3/uL RBC (4.20-5.40) 10^6/uL Hgb (12.0-16.0) g/dL Hct (37.0-47.0) % MCV (81.0-99.0) fL MCH (27.0-31.0) pg MCHC (32.0-36.0) g/dL RDW (12.0-15.0) % Plt Count (130-450) 10^3/uL MPV (7.9-10.8) fL Neut # (Auto) (1.5-6.6) 10^3/uL Lymph # (Auto) (1.5-3.5) 10^3/uL [place] # (Auto) (0.0-1.0) 10^3/uL Eos # (Auto) (0.0-0.7) 10^3/uL Baso # (Auto) (0.0-0.1) 10^3/uL Absolute Nucleated RBC x10^3/uL Nucleated RBC % /100WBC ESR (0-20) mm/Hr VBG pH (7.31-7.41) VBG pCO2 (41-51) mmHg VBG pO2 (25-47) mmHg VBG HCO3 (23-28) mmol/L VBG Total CO2 (24-29) mmol/L VBG O2 Saturation (60-80) % VBG Base Excess (-2 - +2) mmol/L Ionized Calcium (1.15-1.33) mmol/L Sodium (135-145) mmol/L Potassium (3.5-5.0) mmol/L Chloride (101-111) mmol/L Carbon Dioxide (21-32) mmol/L Anion Gap (6-13) BUN (6-20) mg/dL Creatinine (0.4-1.0) mg/dL Estimated GFR (MDRD) (>89) Glucose (70-100) mg/dL POC Whole Bld Glucose 217 H 198 H (70 - 100) mg/dL Lactic Acid 1.6 (0.5-2.2) mmol/L Calcium (8.5-10.3) mg/dL Phosphorus (2.5-4.6) mg/dL Magnesium (1.7-2.8) mg/dL C-Reactive Protein (0-1.0) mg/dL Urine Color Urine Clarity (CLEAR) Urine pH (5.0-7.5) PH Ur Specific [place] (1.002-1.030) Urine Protein (NEGATIVE) mg/dL Urine Glucose (UA) (NEGATIVE) mg/dL Urine Ketones (NEGATIVE) mg/dL Urine Occult Blood (NEGATIVE) Urine Nitrite (NEGATIVE) Urine Bilirubin (NEGATIVE) Urine Urobilinogen (NORMAL) E.U./dL Ur Leukocyte Esterase (NEGATIVE) Ur Microscopic Review Urine Culture Comments Urine HCG, Qual Nasal Screen MRSA (PCR) (NEGATIVE) Serum Ketones (NEGATIVE) 07/18/18 07/18/18 07/18/18 Range/Units 12:42 12:42 12:42 WBC (4.8-10.8) x10^3/uL RBC (4.20-5.40) 10^6/uL Hgb (12.0-16.0) g/dL Hct (37.0-47.0) % MCV (81.0-99.0) fL MCH (27.0-31.0) pg MCHC (32.0-36.0) g/dL RDW (12.0-15.0) % Plt Count (130-450) 10^3/uL MPV (7.9-10.8) fL Neut # (Auto) (1.5-6.6) 10^3/uL Lymph # (Auto) (1.5-3.5) 10^3/uL [place] # (Auto) (0.0-1.0) 10^3/uL Eos # (Auto) (0.0-0.7) 10^3/uL Baso # (Auto) (0.0-0.1) 10^3/uL Absolute Nucleated RBC x10^3/uL Nucleated RBC % /100WBC ESR (0-20) mm/Hr VBG pH 6.942 L (7.31-7.41) VBG pCO2 22.6 L (41-51) mmHg VBG pO2 41.7 (25-47) mmHg VBG HCO3 4.8 L (23-28) mmol/L VBG Total CO2 5.5 L (24-29) mmol/L VBG O2 Saturation 80.3 H (60-80) % VBG Base Excess -26.4 L (-2 - +2) mmol/L Ionized Calcium (1.15-1.33) mmol/L Sodium (135-145) mmol/L Potassium (3.5-5.0) mmol/L Chloride (101-111) mmol/L Carbon Dioxide (21-32) mmol/L Anion Gap (6-13) BUN (6-20) mg/dL Creatinine (0.4-1.0) mg/dL Estimated GFR (MDRD) (>89) Glucose 177 H (70-100) mg/dL POC Whole Bld Glucose (70 - 100) mg/dL Lactic Acid (0.5-2.2) mmol/L Calcium (8.5-10.3) mg/dL Phosphorus (2.5-4.6) mg/dL Magnesium (1.7-2.8) mg/dL C-Reactive Protein (0-1.0) mg/dL Urine Color Urine Clarity (CLEAR) Urine pH (5.0-7.5) PH Ur Specific [place] (1.002-1.030) Urine Protein (NEGATIVE) mg/dL Urine Glucose (UA) (NEGATIVE) mg/dL Urine Ketones (NEGATIVE) mg/dL Urine Occult Blood (NEGATIVE) Urine Nitrite (NEGATIVE) Urine Bilirubin (NEGATIVE) Urine Urobilinogen (NORMAL) E.U./dL Ur Leukocyte Esterase (NEGATIVE) Ur Microscopic Review Urine Culture Comments Urine HCG, Qual Nasal Screen MRSA (PCR) (NEGATIVE) Serum Ketones MODERATE H (NEGATIVE) 07/18/18 07/18/18 07/18/18 Range/Units 11:52 11:38 10:53 WBC (4.8-10.8) x10^3/uL RBC (4.20-5.40) 10^6/uL Hgb (12.0-16.0) g/dL Hct (37.0-47.0) % MCV (81.0-99.0) fL MCH (27.0-31.0) pg MCHC (32.0-36.0) g/dL RDW (12.0-15.0) % Plt Count (130-450) 10^3/uL MPV (7.9-10.8) fL Neut # (Auto) (1.5-6.6) 10^3/uL Lymph # (Auto) (1.5-3.5) 10^3/uL [place] # (Auto) (0.0-1.0) 10^3/uL Eos # (Auto) (0.0-0.7) 10^3/uL Baso # (Auto) (0.0-0.1) 10^3/uL Absolute Nucleated RBC x10^3/uL Nucleated RBC % /100WBC ESR (0-20) mm/Hr VBG pH 6.859 L (7.31-7.41) VBG pCO2 27.5 L (41-51) mmHg VBG pO2 24.7 L (25-47) mmHg VBG HCO3 4.8 L (23-28) mmol/L VBG Total CO2 5.6 L (24-29) mmol/L VBG O2 Saturation 52.7 L (60-80) % VBG Base Excess -28.3 L (-2 - +2) mmol/L Ionized Calcium (1.15-1.33) mmol/L Sodium 134 L (135-145) mmol/L Potassium 3.4 L (3.5-5.0) mmol/L Chloride 111 (101-111) mmol/L Carbon Dioxide < 6 L* (21-32) mmol/L Anion Gap 18.0 H (6-13) BUN 7 (6-20) mg/dL Creatinine 0.7 (0.4-1.0) mg/dL Estimated GFR (MDRD) 100 (>89) Glucose 215 H (70-100) mg/dL POC Whole Bld Glucose 216 H (70 - 100) mg/dL Lactic Acid (0.5-2.2) mmol/L Calcium 7.5 L (8.5-10.3) mg/dL Phosphorus (2.5-4.6) mg/dL Magnesium 1.9 (1.7-2.8) mg/dL C-Reactive Protein (0-1.0) mg/dL Urine Color Urine Clarity (CLEAR) Urine pH (5.0-7.5) PH Ur Specific [place] (1.002-1.030) Urine Protein (NEGATIVE) mg/dL Urine Glucose (UA) (NEGATIVE) mg/dL Urine Ketones (NEGATIVE) mg/dL Urine Occult Blood (NEGATIVE) Urine Nitrite (NEGATIVE) Urine Bilirubin (NEGATIVE) Urine Urobilinogen (NORMAL) E.U./dL Ur Leukocyte Esterase (NEGATIVE) Ur Microscopic Review Urine Culture Comments Urine HCG, Qual Nasal Screen MRSA (PCR) (NEGATIVE) Serum Ketones (NEGATIVE) 07/18/18 07/18/18 07/18/18 Range/Units 10:53 10:50 09:30 WBC (4.8-10.8) x10^3/uL RBC (4.20-5.40) 10^6/uL Hgb (12.0-16.0) g/dL Hct (37.0-47.0) % MCV (81.0-99.0) fL MCH (27.0-31.0) pg MCHC (32.0-36.0) g/dL RDW (12.0-15.0) % Plt Count (130-450) 10^3/uL MPV (7.9-10.8) fL Neut # (Auto) (1.5-6.6) 10^3/uL Lymph # (Auto) (1.5-3.5) 10^3/uL [place] # (Auto) (0.0-1.0) 10^3/uL Eos # (Auto) (0.0-0.7) 10^3/uL Baso # (Auto) (0.0-0.1) 10^3/uL Absolute Nucleated RBC x10^3/uL Nucleated RBC % /100WBC ESR (0-20) mm/Hr VBG pH (7.31-7.41) VBG pCO2 (41-51) mmHg VBG pO2 (25-47) mmHg VBG HCO3 (23-28) mmol/L VBG Total CO2 (24-29) mmol/L VBG O2 Saturation (60-80) % VBG Base Excess (-2 - +2) mmol/L Ionized Calcium (1.15-1.33) mmol/L Sodium 132 L (135-145) mmol/L Potassium 3.5 (3.5-5.0) mmol/L Chloride 111 (101-111) mmol/L Carbon Dioxide < 6 L* (21-32) mmol/L Anion Gap 16.0 H (6-13) BUN 8 (6-20) mg/dL Creatinine 0.7 (0.4-1.0) mg/dL Estimated GFR (MDRD) 100 (>89) Glucose 240 H (70-100) mg/dL POC Whole Bld Glucose 241 H (70 - 100) mg/dL Lactic Acid (0.5-2.2) mmol/L Calcium 7.2 L (8.5-10.3) mg/dL Phosphorus (2.5-4.6) mg/dL Magnesium 1.9 (1.7-2.8) mg/dL C-Reactive Protein (0-1.0) mg/dL Urine Color Urine Clarity (CLEAR) Urine pH (5.0-7.5) PH Ur Specific [place] (1.002-1.030) Urine Protein (NEGATIVE) mg/dL Urine Glucose (UA) (NEGATIVE) mg/dL Urine Ketones (NEGATIVE) mg/dL Urine Occult Blood (NEGATIVE) Urine Nitrite (NEGATIVE) Urine Bilirubin (NEGATIVE) Urine Urobilinogen (NORMAL) E.U./dL Ur Leukocyte Esterase (NEGATIVE) Ur Microscopic Review Urine Culture Comments Urine HCG, Qual Nasal Screen MRSA (PCR) NEGATIVE (NEGATIVE) Serum Ketones (NEGATIVE) Assessment/Plan - Problem List (1) Abdominal pain Impression: Pain resolved. MRI and pelvis US is pending Qualifiers: Abdominal location: right upper quadrant Qualified Code(s): R10.11 - Right upper quadrant pain (2) Bacterial vaginosis Impression: Wet mount is suggestive for BV. usual antibiotic is Metronidizol, However Clinda 300 mg bis for 6 days is acceptable.
[2018-07-19 12:07] LABS: VBG PH 7.252 (7.31-7.41)
[2018-07-19 12:08] LABS: VBG PO2 71.6 mmHg (25-47); VBG TOTAL CO2 12.5 mmol/L (24-29)
[2018-07-19 12:16] LABS: BUN - BLOOD UREA NITROGEN < 5 mg/dL (6-20); CALCIUM 7.4 mg/dL (8.5-10.3); CARBON DIOXIDE - CO2 11 mmol/L (21-32); CHLORIDE 112 mmol/L (101-111); CREATININE 0.4 mg/dL (0.4-1.0); GFR - MDRD 190 (>89); GLUCOSE 184 mg/dL (70-100); SODIUM 135 mmol/L (135-145)
--- NOTE | 2018-07-19 12:26 | PROVIDER PROGRESS NOTE ---
Assessment/Plan - Problem List (1) DKA (diabetic ketoacidoses) Qualifiers: Diabetes mellitus type: type 1 Diabetes mellitus complication detail: without coma Qualified Code(s): E10.10 - Type 1 diabetes mellitus with ketoacidosis without coma Assessment/Plan: She still has small serum ketones and pH is acidotic and slightly elevated anion gap. Will start her 70/30 Insulin but at a lower dose than her usual. Will continue iv Insulin drip (with D5NS) til serum ketones clear. Will advance diet and change fingerstick checks. Eventualky will change from Insulin drip to aspart Insulin coverage for a patient eating, and ss Insulin coverage. (2) Perihepatitis Assessment/Plan: This was suspected by her US of RUQ, despite no elevation of LFTs. Today an abd/pelvis MRI is planned. All serum tests were ordered to evaluate: Hep A,B,C,E, HIV. (3) Bacterial vaginosis Assessment/Plan: As per OB oracle fusion consultant. 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 Pelvic exam with sample wet mount done by Application Architect Manager and labs sent of for GC/Chlamydia and RPR. (4) Hypophosphatemia Assessment/Plan: Related to Phos losses with vomiting, likley. Replace PO4. Follow q12h. (5) Anxiety and depression Assessment/Plan: Continue her pre-hospital meds. (6) Bipolar disorder Assessment/Plan: Continue her pre-hospital meds. - Current Meds Current Meds: Current Medications Generic Name Dose Route Start Last Admin Trade Name Yomaira PRN Reason Stop Dose Admin Aripiprazole 15 mg 07/18/18 21:00 07/18/18 21:41 Abilify PO 15 mg QPM EMILY Administration Benztropine Mesylate 0.5 mg 07/19/18 09:00 07/19/18 08:16 Cogentin PO 0.5 mg DAILY EMILY Administration Benztropine Mesylate 1 mg 07/18/18 21:00 07/19/18 00:17 Cogentin PO 1 mg QPM EMILY Administration Sodium Chloride 1,000 mls @ 125 mls/hr 07/18/18 09:00 07/19/18 06:30 Normal Saline 0.9% IV 125 mls/hr .Q8H EMILY Administration Clindamycin Phosphate 50 mls @ 50 mls/hr 07/18/18 14:00 07/19/18 06:49 Cleocin 900 Mg/50 Ml IV Infused Q8HR EMILY Infusion Gentamicin Sulfate 70 mg/ 51.75 mls @ 100 mls/hr 07/19/18 00:00 07/19/18 10:24 Sodium Chloride IV Infused Q8H EMILY Infusion Potassium Phosphate 15 mmol/ 255 mls @ 63 mls/hr 07/19/18 05:00 07/19/18 09:45 Sodium Chloride IV 07/19/18 12:59 63 mls/hr Q4H EMILY Administration Ketorolac Tromethamine 30 mg 07/18/18 17:51 07/19/18 06:30 Toradol Inj (30mg) IVP 07/23/18 17:50 30 mg Q6HR PRN Administration PAIN Prazosin HCl 1 mg 07/18/18 21:00 07/18/18 21:41 Minipress PO Not Given QPM EMILY Sodium Chloride 10 ml 07/18/18 09:00 07/19/18 12:02 Normal Saline Flush 0.9% IVP 10 ml 0100,0900,1700 EMILY Administration Temazepam 15 mg 07/18/18 21:00 07/18/18 23:20 Restoril PO Not Given QPM EMILY Venlafaxine HCl 150 mg 07/18/18 10:30 07/19/18 08:16 Effexor Er PO 150 mg DAILY EMILY Administration - Lab Result Fish Bone Diagrams: 07/19/18 05:25 07/19/18 11:54 - Additional Planning My Orders: My Active Orders 07/18/18 11:53 fentaNYL 25 mcg IVP Q3HR PRN 07/18/18 12:00 Acetaminophen 1,000 mg/100 ml [Ofirmev] 100 ml IV Q6HR 07/18/18 14:00 Clindamycin 900 mg/50 ml [Cleocin 900 mg/50 ml] 50 ml IV Q8HR 07/18/18 16:07 Initiate Line Care Protocol [RC] QSHIFT 07/18/18 17:51 Ketorolac Inj (30Mg) [Toradol Inj (30Mg)] 30 mg IVP Q6HR PRN 07/18/18 18:07 Central Line Care [RC] Q4H Miscellaenous Nursing Order [RC] ONCE 07/18/18 18:25 HEPATITIS ACUTE PANEL W CONF [REFLAB] Routine HEPATITIS B CORE AB TOTAL [REFLAB] Routine HEPATITIS B SURFACE AB QN IMM [REFLAB] Routine HEPATITIS B SURFACE AG W CONF [REFLAB] Routine HEPATITIS BE ANTIBODY [REFLAB] Routine HEPATITIS BE ANTIGEN [REFLAB] Routine HEPATITIS C AB RFLX RNA QN [REFLAB] Routine HIV AB/AG 4TH GEN W/REFLEX [REFLAB] Routine 07/18/18 21:00 ARIPiprazole [Abilify] 15 mg PO QPM Benztropine [Cogentin] 1 mg PO QPM Prazosin [Minipress] 1 mg PO QPM Temazepam [Restoril] 15 mg PO QPM 07/19/18 00:00 Gentamicin 70 mg Sodium Chloride 0.9% [Normal Saline 0.9%] 50 ml IV Q8H 07/19/18 05:00 Potassium Phosphate 15 mmol Sodium Chloride 0.9% [Normal Saline 0.9%] 250 ml IV Q4H 07/19/18 08:00 ABDOMEN WO [MRI] Routine 07/19/18 09:00 MAGNESIUM [CHEM] PRN PHOSPHORUS [CHEM] PRN Benztropine [Cogentin] 0.5 mg PO DAILY 07/19/18 12:23 Blood Glucose Checks - Eating [RC] 0800,1200,1700,2100 07/19/18 18:00 BMP - BASIC METABOLIC PANEL [CHEM] Timed KETONES, SERUM (ACETEST) [CHEM] Timed VENOUS BLOOD GAS [BG] Timed Insulin 70/30 Human [NovoLIN] 10 unit SUBQ 0730,1800 07/19/18 Dinner DIET [Dysphagia Puree Diet] [DIET] 07/19/18 Lunch Clear Liquid Diet [DIET] 07/20/18 05:00 BMP - BASIC METABOLIC PANEL [CHEM] DAILYLAB CBC - COMP BLD CT W/AUTO DIFF [HEME] DAILYLAB 07/21/18 05:00 CBC - COMP BLD CT W/AUTO DIFF [HEME] DAILYLAB Subjective - Subjective Patient Reports: Feeling Better, Resting Comfortably Objective Vital Signs: Vital Signs - 24 hr 07/18/18 07/18/18 07/18/18 13:00 14:26 15:00 Temperature 36.8 C 36.8 C Heart Rate 100 Heart Rate [ 100 101 H Monitoring electrodes] Respiratory 17 18 18 Rate Blood Pressure 91/55 L 95/65 [Right Brachial artery] O2 Saturation 100 100 100 07/18/18 07/18/18 07/18/18 17:00 18:00 19:00 Temperature Heart Rate Heart Rate [ 110 H 97 92 Monitoring electrodes] Respiratory 15 16 17 Rate Blood Pressure 99/66 104/72 91/61 [Right Brachial artery] O2 Saturation 100 98 100 07/18/18 07/18/18 07/18/18 21:00 22:00 23:00 Temperature Heart Rate Heart Rate [ 103 H 99 107 H Monitoring electrodes] Respiratory 18 17 14 Rate Blood Pressure 100/69 96/69 100/66 [Right Brachial artery] O2 Saturation 100 100 100 07/19/18 07/19/18 07/19/18 00:00 01:00 02:00 Temperature 36.7 C Heart Rate Heart Rate [ 102 H 95 88 Monitoring electrodes] Respiratory 18 16 16 Rate Blood Pressure 99/60 96/58 L 94/64 [Right Brachial artery] O2 Saturation 99 100 99 07/19/18 07/19/18 07/19/18 03:00 03:25 04:00 Temperature 36.7 C Heart Rate Heart Rate [ 102 H 104 H 85 Monitoring electrodes] Respiratory 20 20 15 Rate Blood Pressure 82/53 L 101/66 98/66 [Right Brachial artery] O2 Saturation 99 99 99 07/19/18 07/19/18 07/19/18 05:00 06:00 07:00 Temperature Heart Rate Heart Rate [ 92 102 H 105 H Monitoring electrodes] Respiratory 16 14 24 Rate Blood Pressure 87/61 L 97/57 L 87/56 L [Right Brachial artery] O2 Saturation 99 99 100 07/19/18 07/19/18 09:00 11:00 Temperature 36.9 C 36.6 C Heart Rate Heart Rate [ 92 97 Monitoring electrodes] Respiratory 14 14 Rate Blood Pressure 103/66 108/80 [Right Brachial artery] O2 Saturation 100 100 Oxygen O2 Source Room air I&O (Last 24 Hrs): Intake and Output Totals x24h 07/17/18 07/18/18 07/19/18 23:59 23:59 23:59 Intake Total 5818.951 3064.750 Output Total 1800 1700 Balance 4018.951 1364.750 General: Alert, Oriented x3 HEENT: Mucous membr. moist/pink Neck: Supple Neuro: Non Focal Cardiovascular: Regular rate, No murmurs Respiratory: No respiratory distress, Breath sounds nml Abdomen: Normal bowel sounds, Soft Extremities: No edema - Results Results: Laboratory Results WBC 6.5 x10^3/uL (4.8-10.8) 07/19/18 05:25 RBC 4.06 10^6/uL (4.20-5.40) L 07/19/18 05:25 Hgb 12.6 g/dL (12.0-16.0) 07/19/18 05:25 Hct 37.0 % (37.0-47.0) 07/19/18 05:25 MCV 91.2 fL (81.0-99.0) 07/19/18 05:25 MCH 30.9 pg (27.0-31.0) 07/19/18 05:25 MCHC 33.9 g/dL (32.0-36.0) 07/19/18 05:25 RDW 12.6 % (12.0-15.0) 07/19/18 05:25 Plt Count 220 10^3/uL (130-450) 07/19/18 05:25 MPV 8.0 fL (7.9-10.8) 07/19/18 05:25 Neut # (Auto) 4.7 10^3/uL (1.5-6.6) 07/19/18 05:25 Lymph # (Auto) 1.3 10^3/uL (1.5-3.5) L 07/19/18 05:25 Butler # (Auto) 0.5 10^3/uL (0.0-1.0) 07/19/18 05:25 Eos # (Auto) 0.0 10^3/uL (0.0-0.7) 07/19/18 05:25 Baso # (Auto) 0.0 10^3/uL (0.0-0.1) 07/19/18 05:25 Absolute Nucleated RBC 0.00 x10^3/uL 07/19/18 05:25 Total Counted 100 07/18/18 06:25 Band Neuts % (Manual) 4 % (0-10) 07/18/18 06:25 Abnorm Lymph % (Manual) 0 % 07/18/18 06:25 Nucleated RBC % 0.0 /100WBC 07/19/18 05:25 Neutrophils # (Manual) 14.3 10^3/uL (1.5-6.6) H 07/18/18 06:25 Lymphocytes # (Manual) 3.6 10^3/uL (1.5-3.5) H 07/18/18 06:25 Monocytes # (Manual) 1.1 10^3/uL (0.0-1.0) H 07/18/18 06:25 Eosinophils # (Manual) 0.0 10^3/uL (0-0.7) 07/18/18 06:25 Basophils # (Manual) 0.0 10^3/uL (0-0.1) 07/18/18 06:25 Differential Comment MANUAL DIFFERENTIAL 07/18/18 06:25 Platelet Estimate NORMAL (130-450,000) (NORMAL) 07/18/18 06:25 RBC Morph Micro Appear NORMAL APPEARANCE (NORMAL) 07/18/18 06:25 ESR 4 mm/Hr (0-20) 07/18/18 18:25 VBG pH 7.252 (7.31-7.41) L 07/19/18 11:54 VBG pCO2 27.0 mmHg (41-51) L 07/19/18 11:54 VBG pO2 71.6 mmHg (25-47) H 07/19/18 11:54 VBG HCO3 11.6 mmol/L (23-28) L 07/19/18 11:54 VBG Total CO2 12.5 mmol/L (24-29) L 07/19/18 11:54 VBG O2 Saturation 95.3 % (60-80) H 07/19/18 11:54 VBG Base Excess -14.0 mmol/L (-2 - +2) L 07/19/18 11:54 Ionized Calcium 1.21 mmol/L (1.15-1.33) 07/19/18 05:25 Sodium 135 mmol/L (135-145) 07/19/18 11:54 Potassium 4.6 mmol/L (3.5-5.0) 07/19/18 11:54 Chloride 112 mmol/L (101-111) H 07/19/18 11:54 Carbon Dioxide 11 mmol/L (21-32) L* 07/19/18 11:54 Anion Gap 12.0 (6-13) 07/19/18 11:54 BUN < 5 mg/dL (6-20) L 07/19/18 11:54 Creatinine 0.4 mg/dL (0.4-1.0) 07/19/18 11:54 Estimated GFR (MDRD) 190 (>89) 07/19/18 11:54 Glucose 184 mg/dL (70-100) H 07/19/18 11:54 POC Whole Bld Glucose 158 mg/dL (70 - 100) H 07/19/18 11:48 Glycated Hemoglobin 11.8 % (4.6-6.2) H 07/18/18 08:32 Estim Average Glucose 292 (70-100) H 07/18/18 08:32 Lactic Acid 1.6 mmol/L (0.5-2.2) 07/18/18 12:42 Calcium 7.4 mg/dL (8.5-10.3) L 07/19/18 11:54 Phosphorus < 1.0 mg/dL (2.5-4.6) L* 07/19/18 03:18 Magnesium 1.7 mg/dL (1.7-2.8) 07/19/18 03:18 Total Bilirubin 1.4 mg/dL (0.2-1.0) H 07/18/18 06:25 AST 18 IU/L (10-42) 07/18/18 06:25 ALT 16 IU/L (10-60) 07/18/18 06:25 Alkaline Phosphatase 97 IU/L (42-121) 07/18/18 06:25 C-Reactive Protein < 1.0 mg/dL (0-1.0) 07/18/18 18:10 Total Protein 6.9 g/dL (6.7-8.2) 07/18/18 06:25 Albumin 3.9 g/dL (3.2-5.5) 07/18/18 06:25 Globulin 3.0 g/dL (2.1-4.2) 07/18/18 06:25 Albumin/Globulin Ratio 1.3 (1.0-2.2) 07/18/18 06:25 Lipase 19 U/L (22-51) L 07/18/18 06:25 Serum HCG, Qual NEGATIVE 07/18/18 06:25 Urine Color YELLOW 07/18/18 20:45 Urine Clarity CLEAR (CLEAR) 07/18/18 20:45 Urine pH 6.0 PH (5.0-7.5) 07/18/18 20:45 Ur Specific Twain 1.025 (1.002-1.030) 07/18/18 20:45 Urine Protein TRACE mg/dL (NEGATIVE) 07/18/18 20:45 Urine Glucose (UA) 500 mg/dL (NEGATIVE) H 07/18/18 20:45 Urine Ketones 40 mg/dL (NEGATIVE) H 07/18/18 20:45 Urine Occult Blood TRACE-INTA (NEGATIVE) 07/18/18 20:45 Urine Nitrite NEGATIVE (NEGATIVE) 07/18/18 20:45 Urine Bilirubin NEGATIVE (NEGATIVE) 07/18/18 20:45 Urine Urobilinogen 0.2 (NORMAL) E.U./dL (NORMAL) 07/18/18 20:45 Ur Leukocyte Esterase NEGATIVE (NEGATIVE) 07/18/18 20:45 Urine RBC 6-10 /HPF (0-5) H 07/18/18 05:50 Urine WBC 0-3 /HPF (0-5) 07/18/18 05:50 Ur Squamous Epith Cells RARE Squamous (<= Few) 07/18/18 05:50 Urine Bacteria Rare /HPF (None Seen) 07/18/18 05:50 Urine Mucus Few Strands 07/18/18 05:50 Ur Microscopic Review NOT INDICATED 07/18/18 20:45 Urine Culture Comments NOT INDICATED 07/18/18 20:45 Urine HCG, Qual NEGATIVE 07/18/18 20:45 Nasal Screen MRSA (PCR) NEGATIVE (NEGATIVE) 07/18/18 09:30 Serum Ketones SMALL (NEGATIVE) H 07/19/18 11:54
[2018-07-19] MEDS ORDERED: NEUTRA-PHOS 250 MG TABLET PO SCH ×2 (14:00→14:18)
[2018-07-19] MEDS ORDERED: POTASSIUM CHLORIDE INJ 40 MEQ in DEXTROSE 5%-0.45% NACL 980 ML IV SCH (14:00)
[2018-07-19] MEDS ORDERED: CALCIUM ACETATE 667 MG CAPSULE PO STA (14:12)
--- NOTE | 2018-07-19 15:38 | MRI Report ---
Reason: PID with poss Pb Darryl Bharath syndrome Procedure Date: 07/19/2018 Accession Number: [id number] / [id number] Procedure: MRI - Abdomen W/O CPT Code: FULL RESULT: EXAM: MR ABDOMEN WITHOUT CONTRAST EXAM DATE: 07/19/2018 03:11 PM. CLINICAL HISTORY: PID with possible Pb Darryl Bharath syndrome. COMPARISON: Abdominal ultrasound from 07/18/2018. TECHNIQUE: Multiplanar breath-hold T1, T2 sequences obtained through the abdomen on an MR scanner. No intravenous contrast administered. FINDINGS: Lung Bases: No areas of signal abnormality. No pleural effusion. Liver: Overall size, morphology, and signal characteristics are within normal limits. Gallbladder: There is gradual gradation of T2 hypointense material, suggestive of inspissated bile or sludge. No gallbladder wall thickening. Bile Ducts: Caliber is within normal limits. Pancreas: Preserved intrinsic T1 signal hyperintensity. No ductal dilation. Spleen: Within normal limits. Kidneys: No hydronephrosis. Adrenals: No nodules. Bowel: No evidence of bowel obstruction or inflammation. There is trace fluid adjacent to the inferior right hepatic lobe (series 601, image 9 and series 301, image 18). Retroperitoneum: Abdominal aorta is normal in caliber. No retroperitoneal adenopathy. Other: The visualized bones demonstrate normal marrow signal. IMPRESSION: 1. Trace fluid adjacent to the inferior right hepatic lobe is nonspecific. However, in the setting of pelvic inflammatory disease, peritonitis/perihepatitis is not excluded. 2. Sludge or inspissated bile in the gallbladder. No evidence for acute cholecystitis. RADIA
[2018-07-19] MEDS: INSULIN REGULAR HUMAN 100 UNIT in SODIUM CHLORIDE 0.9% 100ML 99 ML IV SCH (15:45)
[2018-07-19] MEDS: DEXTROSE 5%-0.9% NACL 1,000 ML IV SCH ×2 (15:48→23:08)
--- NOTE | 2018-07-19 16:55 | Ultrasound Report ---
Reason: R/O TOA Procedure Date: 07/19/2018 Accession Number: [id number] / [id number] Procedure: US - Pelvic w/Transvaginal CPT Code: FULL RESULT: EXAM: PELVIC ULTRASOUND EXAM DATE: 07/19/2018 03:39 PM. CLINICAL HISTORY: R/O TOA. Pelvic pain. LMP 07/02/2018 COMPARISON: None. TECHNIQUE: Realtime transabdominal pelvic scan performed to identify the uterus and adnexa and as an overview of other pelvic structures, followed by transvaginal scan to provide greater detail of the uterus and adnexa, with static image documentation. FINDINGS: Uterus: 7.7 x 4 x 5.2 cm, volume 84 cc. Anteverted position. Normal overall size and echotexture. Masses: None. Endometrium: 6.6 mm. Normal. Cervix: Unremarkable. Right Ovary: 3.5 x 1.2 x 2.9 cm, volume 6.4 cc. Normal echotexture and blood flow. Left Ovary: 3.1 x 2.1 x 3.1 cm, volume 10.6 cc. Normal echotexture and blood flow. Possible collapsing cyst present. Free Fluid: Moderate. Other: No findings of a tubo-ovarian abscess. IMPRESSION: Moderate pelvic free fluid, likely secondary to a collapsing left ovarian cyst. No findings of a tubo-ovarian abscess. RADIA
[2018-07-19] MEDS: INSULIN 70/30 HUMAN 100 UNIT/1 ML 10 ML MDV SUBQ SCH (18:13)
[2018-07-19 18:16] LABS: VBG BASE EXCESS -8.3 mmol/L (-2 - +2); VBG PCO2 32.5 mmHg (41-51); VBG PH 7.327 (7.31-7.41); VBG TOTAL CO2 17.6 mmol/L (24-29)
[2018-07-19 18:30] LABS: BUN - BLOOD UREA NITROGEN < 5 mg/dL (6-20); CALCIUM 7.8 mg/dL (8.5-10.3); CARBON DIOXIDE - CO2 18 mmol/L (21-32); CHLORIDE 111 mmol/L (101-111); CREATININE 0.4 mg/dL (0.4-1.0); GFR - MDRD 190 (>89); GLUCOSE 167 mg/dL (70-100); SODIUM 136 mmol/L (135-145)
[2018-07-19 18:33] LABS: MAGNESIUM 1.7 mg/dL (1.7-2.8)
[2018-07-19 18:34] LABS: PHOSPHORUS < 1.0 mg/dL (2.5-4.6)
[2018-07-19 18:48] LABS: KETONES, SERUM (ACETEST) SMALL (NEGATIVE)
[2018-07-19 19:37] LABS: VBG PH 7.327 (7.31-7.41)
[2018-07-19] MEDS ORDERED: POTASSIUM PHOSPHATE 15 MMOL in SODIUM CHLORIDE 0.9% 250 ML IV SCH (19:48)
[2018-07-19] MEDS: PRAZOSIN 1 MG CAPSULE PO SCH (20:09)
[2018-07-19] MEDS: ARIPiprazole 5 MG TABLET PO SCH (20:09)
[2018-07-19] MEDS: TEMAZEPAM 15 MG CAPSULE PO SCH (20:09)
[2018-07-19] MEDS: NEUTRA-PHOS 250 MG TABLET PO SCH (20:13)
[2018-07-19] MEDS ORDERED: INSULIN GLARGINE 300 UNIT/3 ML PEN SUBQ SCH (21:00)
[2018-07-20] MEDS: INSULIN REGULAR HUMAN 100 UNIT in SODIUM CHLORIDE 0.9% 100ML 99 ML IV SCH (00:38)
[2018-07-20] MEDS: SODIUM CHLORIDE 0.9% 1,000 ML IV SCH (01:18)
[2018-07-20] MEDS: SODIUM CHLORIDE FLUSH 0.9% 10 ML SYRINGE IVP SCH ×3 (01:19→08:19)
[2018-07-20] MEDS: SODIUM CHLORIDE FLUSH 0.9% 10 ML SYRINGE IVP PRN ×2 (02:25→05:59)
[2018-07-20 02:44] LABS: BASOPHILS % (AUTO) 0.5 %; EOSINOPHILS # (AUTO) 0.1 10^3/uL (0.0-0.7); EOSINOPHILS % (AUTO) 2.1 %; HGB - HEMOGLOBIN 10.1 g/dL (12.0-16.0); LYMPHOCYTES # (AUTO) 2.1 10^3/uL (1.5-3.5); MEAN CORPUSCULAR HEMOGLOBIN 30.7 pg (27.0-31.0); MEAN CORPUSCULAR HGB CONC 34.1 g/dL (32.0-36.0); MEAN PLATELET VOLUME 8.2 fL (7.9-10.8); MONOCYTES # (AUTO) 0.4 10^3/uL (0.0-1.0); MONOCYTES % (AUTO) 6.9 %; NEUTROPHILS # (AUTO) 2.5 10^3/uL (1.5-6.6); NEUTROPHILS % (AUTO) 49.5 %; PLT - PLATELET COUNT 165 10^3/uL (130-450); RED BLOOD COUNT 3.29 10^6/uL (4.20-5.40); RED CELL DISTRIBUTION WIDTH 12.6 % (12.0-15.0); WHITE BLOOD COUNT 5.1 x10^3/uL (4.8-10.8)
[2018-07-20 02:45] LABS: VBG PH 7.326 (7.31-7.41)
[2018-07-20 02:46] LABS: VBG BASE EXCESS -7.5 mmol/L (-2 - +2); VBG PCO2 34.5 mmHg (41-51); VBG TOTAL CO2 18.7 mmol/L (24-29)
[2018-07-20 02:57] LABS: ALBUMIN 2.6 g/dL (3.2-5.5); ALBUMIN/GLOBULIN RATIO 1.4 (1.0-2.2); ALKALINE PHOSPHATASE 49 IU/L (42-121); ALT ALANINE AMINOTRANSFERASE 14 IU/L (10-60); AST ASPARTATE AMINOTRANSFERASE 15 IU/L (10-42); BILIRUBIN,TOTAL 1.1 mg/dL (0.2-1.0); BUN - BLOOD UREA NITROGEN < 5 mg/dL (6-20); CALCIUM 7.6 mg/dL (8.5-10.3); CARBON DIOXIDE - CO2 19 mmol/L (21-32); CHLORIDE 111 mmol/L (101-111); CREATININE 0.3 mg/dL (0.4-1.0); GFR - MDRD 265 (>89); GLUCOSE 220 mg/dL (70-100); MAGNESIUM 1.8 mg/dL (1.7-2.8); SODIUM 138 mmol/L (135-145); TOTAL PROTEIN 4.5 g/dL (6.7-8.2)
[2018-07-20] MEDS: CLINDAMYCIN 900 MG/50 ML 50 ML IV SCH (05:46)
[2018-07-20] MEDS: POTASSIUM CHLOR 20 MEQ/100 ML 20 MEQ/100 ML BAG IV SCH ×2 (05:57→08:18)
[2018-07-20] MEDS: INSULIN 70/30 HUMAN 100 UNIT/1 ML 10 ML MDV SUBQ SCH (08:18)
[2018-07-20] MEDS: VENLAFAXINE ER 75 MG CAPSULE PO SCH (08:19)
[2018-07-20] MEDS: NEUTRA-PHOS 250 MG TABLET PO SCH (08:19)
[2018-07-20] MEDS: KETOROLAC 30 MG/ML VIAL IVP PRN (08:19)
[2018-07-20] MEDS: BENZTROPINE 2 MG TABLET PO SCH (08:19)
[2018-07-20] MEDS: GENTAMICIN IV SCH (08:32)
[2018-07-20] MEDS: SODIUM CHLORIDE 0.9% IV SCH (08:32)
[2018-07-20] MEDS ORDERED: POLYETHYLENE GLYCOL 3350 17 GM PACKET PO SCH (09:00)
--- NOTE | 2018-07-20 10:25 | DISCHARGE SUMMARY ---
"Discharge Summary Admit Date: 07/18/18 Discharge Date: 07/20/18 Discharging Provider: Dr. Irwin Primary Care Provider: Tori Moreno Code Status: Attempt Resuscitation Condition at Discharge: Good Discharge Disposition: 01 Home, Self Care - DIAGNOSES Admission Diagnoses: 1. Diabetic ketoacidosis 2. Uncontrolled type 1 diabetes mellitus 3. Right upper quadrant pain 4. Normal portal vein and liver findings by ultrasound imaging next 5. 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 Suspected PID 7. Abnormal EKG Discharge Diagnoses with Status of Each Condition: (1) Type 1 diabetes mellitus insulin requiring (2) DKA (diabetic ketoacidoses); Resolved (3) Perihepatitis; Stable and improved (4) Bacterial vaginosis; Resolving (5) Hypophosphatemia And hypokalemia; Stable (6) Anxiety and depression; Stable (7) Bipolar disorder; Stable - HPI History of Present Illness: There is a 28-year-old white female who is visiting here from [place] came by car and eventually will return back to [place] with a history of type I insulin requiring type 2 diabetes mellitus for which she was diagnosed 3 years prior presented with diabetic ketoacidosis. The patient conveyed some right upper quadrant pain associated with nausea vomiting along with pleuritic chest pain with radiation to right shoulder. She is never had this before, with no fevers no back or Pap rashes, joint swelling tenderness diarrhea or other GI or symptoms. Patient had BRICK LAYER consulted. Was started on empiric IV antibiotics. Placed in the ICU and placed on an insulin drip - CONSULTS | PROCEDURES Consultations: BRICK LAYER Dr. Kulkarni Procedures: RIJ, Pelvic exam with wet prep - HOSPITAL COURSE Hospital Course: Patient was initially managed for her DKA along with electrolyte disturbances and her water deficit was found to have serum ketones and eventually managed with aggressive IV fluid resuscitation, and letter light repletion, and IV regular insulin drip. Patient typically takes Humulin R along with her 70/30 FlexPen insulin 25 units subcu twice daily. Patient also takes prazosin, Abilify, Effexor, temazepam and benztropine. Patient has a component of having uncontrolled type 1 diabetes mellitus for which her hemoglobin A1c was 11.8 on this admission. Patient had a right IJ placement due to hemodynamic monitoring along with administering IV fluids and her DKA monitor management. Patient's LFTs were elevated initially, along with perihepatic involvement for which hepatitis panel as well as HIV RPR and other labs were sent. In particular patient's pelvic and wet prep showed more than 20% clue cells indicative of Bactrim vaginosis. BRICK LAYER consulted and recommended that patient be placed on IV clindamycin and subsequently transitioned over to oral clindamycin for coverage. Patient had gentamicin also covering initially for GC chlamydia which was also sent and pending. Patient's electrolyte disturbance to include potassium and phosphorus were managed and corrected while hospitalized. Patient had some anemia however nonbleeding or GI related. Patient lacked evidence of bowel obstruction or adhesions. Patient was instructed on glycemic control as an outpatient. Patient had tachycardia and hypotension, however patient's baseline is hypotensive with systolics ranging in the 90s. Patient suffers from bipolar and was placed on Abilify however this causes hyperglycemia as well as orthostatic hypotension. Primary provider to address when she returns to [place]. We will go up on her existing dose of FlexPen insulin 7/30 to 30 units subcu twice daily and place her on Novolin insulin 1 to 10 units subcu before meals at 8 bedtime. Patient to take p.o. clindamycin for an additional 7 to 10 days. Patient instructed on glycemic control. Patient instructed on medication adherence and to follow-up with primary care provider on possible referral to insulin pump treatment for uncontrolled type 1 diabetes mellitus. - ALLERGIES Allergies/Adverse Reactions: Allergies Allergy/AdvReac Type Severity Reaction Status Date / Time Iodine and Iodide Containing Allergy Anaphylaxis Verified 07/18/18 05:50 Produc - MEDICATIONS Home Medications: Ambulatory Orders Medication Instructions Recorded Confirmed Aripiprazole [Abilify] 15 mg PO QPM 07/18/18 07/18/18 Benztropine Mesylate 0.5 mg PO DAILY 07/18/18 07/18/18 Benztropine Mesylate 1 mg PO QPM 07/18/18 07/18/18 Insulin NPH Hum/Reg Insulin Hm 25 units SUBQ 0730,1630 07/18/18 07/18/18 [Novolin 70-30 Flexpen] Insulin Regular Human [NovoLIN R] 0 - 15 units SUBQ ACHS 07/18/18 07/18/18 Prazosin HCl 1 mg PO QPM 07/18/18 07/18/18 Temazepam 15 mg PO QPM 07/18/18 07/18/18 Venlafaxine HCl [Effexor Xr] 150 mg PO DAILY 07/18/18 07/18/18 - PHYSICAL EXAM AT DISCHARGE General Appearance: positive: No acute distress, Alert, Anxious Eyes Bilateral: positive: Normal inspection, PERRL, EOMI ENT: positive: ENT inspection nml, Pharynx nml, No signs of dehydration Neck: positive: Nml inspection, Thyroid nml, No JVD, Trachea midline. negative: Thyromegaly Respiratory: positive: Chest non-tender, No respiratory distress, Breath sounds nml Cardiovascular: positive: Regular rate & rhythm, No murmur, No gallop Peripheral Pulses: positive: 2+ Abdomen: positive: Non-tender, No organomegaly, Nml bowel sounds, No distention Back: negative: CVA tenderness (R), CVA tenderness (L) Skin: positive: Color nml, No rash, Warm Extremities: positive: Non-tender, Full ROM, Nml appearance Neurologic/Psychiatric: positive: Oriented x3, CN's nml (2-12) - LABS Result Diagrams: 07/20/18 02:30 07/20/18 02:30 - QUALITY (Female Hip Fx Only) Was patient sent home on osteoporosis medication?: No - FOLLOW UP Follow Up: To follow-up with PCP in 1 to 2 weeks. Follow-up with primary BRICK LAYER in [place] in 2 to 3 weeks. - TIME SPENT Time Spent in Discharge (Minutes): 30"
--- NOTE | 2018-07-20 10:46 | Discharge Plan ---
Discharge Plan Disposition: Home, Self Care Condition: Good Prescriptions: Clindamycin HCl [Clindamycin 300MG CAP] 300 mg PO BID #14 capsule Insulin NPH Hum/Reg Insulin Hm [Novolin 70-30 Flexpen] 30 units SUBQ 0730,1630 #1 insuln.pen Insulin Regular Human [NovoLIN R] 0 - 15 units SUBQ ACHS #1 bottle Meloxicam 7.5 mg PO BID PRN #30 tablet PRN Reason: Pain Diet: Diabetic Activity Restrictions: Activity as Tolerated Shower Restrictions: No Driving Restrictions: No Instruction Topics: PID, PID Complications, PID Tx Meds Additional Instructions or Follow Up instructions: You were given information on the inflammation of your cervix associated with Ear pelvic inflammatory disease and was treated managed and given an explanation/ education on pelvic inflammatory disease as it pertains to 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 In addition, You will need titration of her existing insulin 70/30 along with her regular insulin. You will also needfollow-up with her current provider who is an endocrinology REGISTERED RESPIRATORY THERAPIST, Tori Moreno in [place] for possible referral to insulin pump. You will be instructed to continue with clindamycin for an additional 7-10 more days along with pain management with meloxicam. Pt comfortable with plan and will return if she worsens. No Smoking: If you smoke, Please STOP! Call for help. Follow-up with: Provider,Other [Physician No Access] - 2 Weeks (To follow-up with current [facility] bias machine operator Tori Moreno in 1-2 weeks. PCP to follow-up in 1 to 2 weeks.)
[2018-07-20 11:03] LABS: HB2 TOTAL 10.7 g/dL; HEMOGLOBIN A1C 1.11 g/dL; HEMOGLOBIN A1C % 11.6 % (4.6-6.2)
[2018-07-20 11:13] VITALS: BP 101/62
[2018-07-20] MEDS ORDERED: PETROLATUM WHITE 5 GM PACKET TOP PRN (11:21)
[2018-07-20] MEDS ORDERED: INSULIN ASPART 300 UNIT/3 ML PEN SUBQ SCH (12:00)
[2018-07-20 12:57] LABS: HEPATITIS A IGM NON-REACTIVE (NON-REACTIVE); HEPATITIS B CORE AB TOTAL NON-REACTIVE (NON-REACTIVE); HEPATITIS B CORE ANTIBODY IGM NON-REACTIVE (NON-REACTIVE); HEPATITIS B SURFACE ANTIGEN NON-REACTIVE (NON-REACTIVE); HEPATITIS C ANTIBODY NON-REACTIVE (NON-REACTIVE)
[2018-07-20] MEDS ORDERED: INSULIN GLARGINE 300 UNIT/3 ML PEN SUBQ SCH (13:23)
[2018-07-20 15:12] LABS: HEPATITIS B SURFACE ANTIGEN NON-REACTIVE (NON-REACTIVE); HEPATITIS C ANTIBODY NON-REACTIVE (NON-REACTIVE)
[2018-07-20 15:22] LABS: HIV AG/AB 4TH GEN NON-REACTIVE (NON-REACTIVE)
[2018-07-20] MEDS ORDERED: INSULIN 70/30 HUMAN 100 UNIT/1 ML 10 ML MDV SUBQ SCH (18:00)
[2018-07-21 18:06] LABS: HEPATITIS BE ANTIGEN NONREACTIVE
== END 2018-07-20 13:24 | disposition home or self-care (01) | DRG 637 ==
LOC: ED 05:43 → ICU 08:10
PROVIDERS: ADMIT Internal Medicine; ATTEND Internal Medicine
DX: E10.10 Type 1 diabetes mellitus with ketoacidosis without coma (principal); K65.8 Other peritonitis; E87.1 Hypo-osmolality and hyponatremia; F41.9 Anxiety disorder, unspecified; F60.3 Borderline personality disorder; F31.9 Bipolar disorder, unspecified; N76.0 Acute vaginitis; E83.39 Other disorders of phosphorus metabolism; E87.6 Hypokalemia; R00.0 Tachycardia, unspecified; I95.9 Hypotension, unspecified; D64.9 Anemia, unspecified; Z91.030 Bee allergy status; Z91.041 Radiographic dye allergy status; F17.210 Nicotine dependence, cigarettes, uncomplicated
CPT/HCPCS: 36415; 71045; 74181; 76705; 76830; 76856; 80048; 80053; 80074; 81001; 81003; 81025; 82009; 82330; 82803; 82947; 83036; 83605; 83690; 83735; 84100; 84132; 84703; 85025; 85651; 86140; 86317; 86704; 86707; 86780; 86803; 87150; 87210; 87340; 87350; 87389; 87491; 87591; 93005; 96361; 96374; 96375; 99284; A9270; J1815; J7040; 87086